=== PATIENT | female | born 1980 | race Caucasian/White ===

== ENCOUNTER 2020-05-22 17:04 | Observation (INO) | payer BC, SELFPAY ==
--- NOTE | ~2020-05-22 | CT_ITS ---
EXAMINATION: CT abdomen pelvis w con DATE: 05/22/2020 20:52 INDICATION: Abdominal pain TECHNIQUE: Computed tomography (CT) of the abdomen and pelvis was performed with 100 cc Omnipaque 350 intravenous contrast. Automated exposure control and iterative reconstruction technique were employe d. Exam dose: 201.34 mGy-cm total exam DLP. COMPARISON: None. FINDINGS: The lung bases are clear of infiltrate or consolidation. Normal heart size. No pericardial or pleural effusion. The liver, gallbladder, bile ducts, spleen, pancreas, pancreatic duct, and adrenal glands and kidneys appear normal. No urinary tract calculus or hydroureteronephrosis. The urinary bladder is unremarkab le. Normal caliber of the abdominal aorta. No intraperitoneal or retroperitoneal or pelvic mass lesion or adenopathy or ascites. Approximately 2.2 cm left ovarian cyst. Mild free fluid in the pelvis. Dilated appendix measuring up to 14 mm diameter, with thickening of the wall, appendicolith, fluid di stention and air-fluid levels. Findings are consistent with acute appendicitis. No abscess is identif ied. There is a prominent amount of fecal material throughout the colon. No bowel obstruction, bowel wall thickening, pneumatosis or intraperitoneal free air is evident. IMPRESSION: Acute appendicitis 2.2 cm left ovarian cyst, mild free fluid in the pelvis Reviewed, dictated and finalized at [facility]. Reviewed, dictated and finalized at [facility].
[2020-05-22 17:33] VITALS: BP 123/73; PULSE 74; RESP 16; TEMP 35.9; O2SAT 100
--- NOTE | 2020-05-22 17:41 | PC.NURSE ---
hysterectomy. preg test cancelled
[2020-05-22 17:52] LABS: Basophils Percent Auto 0.4 % (0.2-1.2); Eosinophils Absolute Auto 0.1 K/mm3 (0-0.3); Hemoglobin 12.6 g/dL (12.0-15.0); Immature Granulocyte Absolute 0.02 K/mm3 (0.00-0.031); Immature Granulocyte Percent A 0.3 % (0-0.5); Lymphocytes Absolute Auto 2.08 K/mm3 (0.9-3.2); Lymphocytes Percent Auto 28.4 % (18.3-44.2); Mean Corpuscular HGB Conc 33.2 g/dl (32-36); Mean Corpuscular Hemoglobin 29.4 pg (26-34); Mean Corpuscular Volume 88.6 fl (80-100); Mean Platelet Volume 10.7 fl (7.4-10.4); Monocytes Absolute Auto 0.5 K/mm3 (0.1-0.6); Monocytes Percent Auto 6.1 % (2.6-8.5); Neutrophils Absolute Auto 4.7 K/mm3 (1.3-6.7); Neutrophils Percent Auto 63.8 % (45.5-73.1); Platelet Count Result 177 k/mm3 (150-375); Red Blood Count 4.29 M/mm3 (4.2-5.4); Red Cell Distribution Width 12.3 % (11.5-14.5); White Blood Count 7.3 K/mm3 (4.5-10.0)
[2020-05-22 17:56] LABS: Add Urine Microscopic? YES; Appearance Urine Clear (Clear); Bilirubin Urine Negative (Negative); Blood Urine Negative (Negative); Color Urine Colorless (Yellow); Glucose Urine UA Negative (Negative); Ketones Urine Trace mg/dL (Negative); Leukocyte Esterase Ur Negative LEU/UL (Negative); Nitrate Urine Negative (Negative); Protein Urine Negative (Negative); RBC Urine 0-2 /hpf (0-2); Squamous Epithelial Cell Urine Rare /hpf (Few); Urobilinogen Urine Negative mg/dL (<2.0); WBC Urine 0-3 /hpf
[2020-05-22 18:01] LABS: Specific Grav Ur 1.004 (1.001-1.035)
[2020-05-22 18:04] LABS: Alanine Aminotransferase 10 U/L (4-35); Albumin Level 4.4 g/dL (3.5-5.1); Alkaline Phosphatase 58 U/L (38-126); Anion Gap 8 mmol/L (8-16); Aspartate Amino Transferase 27 U/L (14-36); Bilirubin,Total 0.6 mg/dL (0.2-1.3); Blood Urea Nitrogen 12 mg/dL (7-17); Calcium 9.4 mg/dL (8.4-10.2); Carbon Dioxide 28 mmol/L (22-30); Chloride 104 mmol/L (98-107); Estimated CRCL calculation 81 ml/min; Estimated Glomerular Filt Rate > 60; Glucose 88 mg/dL (65-105); Lipase 63 U/L (23-300); Potassium 3.9 mmol/L (3.4-5.0); Sodium 140 mmol/L (137-145)
--- NOTE | 2020-05-22 20:18 | ED.GENADULT ---
HPI - General Adult General Chief complaint: Abdominal Pain Stated complaint: abd pain since wednesday Time Seen by Provider: 05/22/20 19:45 History of Present Illness HPI narrative: Patient a 39-year-old female who presents the emergency department with chief complaint of abdominal pain. Patient reports that she started having pain in the right lower quadrant states it does not radiate. Patient states that she has had no vomiting no diarrhea reports has had prior history of a hysterectomy. Patient states the pain is achy and sharp states that her appetite has been decreased. Patient denies fever. The patient reports she last ate around noon and had some water around 4:30 PM Related Data Home Medications Medication Instructions Recorded Confirmed sertraline [Zoloft] 25 mg PO DAILY 01/19/19 01/19/19 Allergies Allergy/AdvReac Type Severity Reaction Status Date / Time No Known Drug Allergies Allergy Mild Verified 02/12/12 11:55 Review of Systems Review of Systems: Narrative: A 10 system review of systems was completed on the patient and is negative except for what is stated in the HPI. Nursing and ancillary documentation was reviewed. PMFSH Social History Social History Gender identity (if verbalized by the patient): Female Comments Patient reports no significant past medical history Surgical history the patient has had a hysterectomy Social history the patient denies smoking Exam Narrative: Exam Narrative: GENERAL: Well-appearing, well-nourished, and in no acute distress. HEAD: Normocephalic, atraumatic. EYES: PERRLA and EOMI. ENT: Nares clear, no rhinorrhea or epistaxis. Mucous membranes moist. NECK: Supple. CHEST: Clear to auscultation. No respiratory distress. HEART: Regular rate and rhythm. No murmur heard. Normal peripheral pulses. ABDOMEN: Soft, mild tenderness to palpation in the right lower quadrant, nondistended, normal active bowel sounds. EXTREMITIES: Normal range of motion. No edema. SKIN: Warm, dry, no rash. NEURO: No focal deficits. Alert and oriented x3. PSYCH: Normal mood and affect. Course Course Emergency Course: CT scan shows evidence of acute appendicitis Migraines were discussed with Dr. Gamez who is on-call for general surgery the patient will be given a dose of Zosyn in the emergency department and the patient will be admitted to the surgical service for most likely appendectomy tomorrow Vital Signs Vital signs: Vital Signs Temperature 35.9 C L 05/22/20 17:33 Pulse Rate 74 05/22/20 17:33 Respiratory Rate 16 05/22/20 17:33 Blood Pressure 123/73 05/22/20 17:33 Pulse Oximetry 100 05/22/20 17:33 Temperature 35.9 C L 05/22/20 17:33 Pulse Rate 74 05/22/20 17:33 Respiratory Rate 16 05/22/20 17:33 Blood Pressure 123/73 05/22/20 17:33 Pulse Oximetry 100 05/22/20 17:33 Medical Decision Making Vital Signs Vital Signs: Vital Signs Temperature 35.9 C L 05/22/20 17:33 Pulse Rate 74 05/22/20 17:33 Respiratory Rate 16 05/22/20 17:33 Blood Pressure 123/73 05/22/20 17:33 Pulse Oximetry 100 05/22/20 17:33 Temperature 35.9 C L 05/22/20 17:33 Pulse Rate 74 05/22/20 17:33 Respiratory Rate 16 05/22/20 17:33 Blood Pressure 123/73 05/22/20 17:33 Pulse Oximetry 100 05/22/20 17:33 Lab Data Result diagrams: 05/22/20 17:44 05/22/20 17:44 Labs: Lab Results 05/22/20 05/22/20 05/22/20 Range/Units 17:44 17:44 17:44 WBC 7.3 (4.5-10.0) K/mm3 RBC 4.29 (4.2-5.4) M/mm3 Hgb 12.6 (12.0-15.0) g/dL Hct 38.0 (37.0-47.0) % MCV 88.6 (80-100) fl MCH 29.4 (26-34) pg MCHC 33.2 (32-36) g/dl RDW 12.3 (11.5-14.5) % Plt Count 177 (150-375) k/mm3 MPV 10.7 H (7.4-10.4) fl Immature Gran % (Auto) 0.3 (0-0.5) % Neut % (Auto) 63.8 (45.5-73.1) % Lymph % (Auto) 28.4 (18.3-44.2) % Dickens % (Auto) 6.1 (2.6-8.5) % Eos % (Auto) 1.0 (0-4.
[2020-05-22] MEDS: ONDANSETRON INJ 4 MG/2 ML VIAL IV PUSH (20:28)
[2020-05-22] MEDS: SODIUM CHLORIDE 0.9% IV 1,000 ML 999 ML IV CONT (20:28)
--- NOTE | 2020-05-22 22:38 | ADMGEN ---
This patient, Lucinda Ariza, was admitted to Medical Room 261-01. Patient/family oriented to hospital policies and general routines including ID bracelet, bed and alarms, visiting hours, pain management, procedures, bathroom and other care routines, personal items, smoking policy, room service/diet, and visiting hours. Information on how to activate the Rapid Response Team has been discussed. Patient/Family are encouraged to report perceived risks to care and to ask questions if they do not understand what they are told or what they should do.
[2020-05-22 22:49] VITALS: BP 102/54; PULSE 57; RESP 16; TEMP 36.4; O2SAT 100; BMI 22.5
[2020-05-22] MEDS: SODIUM CHLORIDE 0.9% IV 1,000 ML 125 ML IV CONT (22:57)
[2020-05-23] VITALS (12 sets, daily range): BP systolic 88–112; BP diastolic 46–66; PULSE 61–95; RESP 14–18; TEMP 36.5–37.1; O2SAT 96–100
[2020-05-23] MEDS: ONDANSETRON INJ 4 MG/2 ML VIAL IV PUSH (05:08)
--- NOTE | 2020-05-23 06:25 | PM.SD2 ---
Same Day Admit/Disch: HPI History of Present Illness Chief complaint: acute appendicitis Narrative: Lucinda Ariza is a 39 year old female who came to the emergency room last night with right lower quadrant abdominal pain. She has not had any nausea or vomiting. She has not had any fever or chills. She has had a poor appetite. The pain is described as achy and sometimes sharp. She came to the emergency room where she was noted to have normal vital signs but tenderness in the right lower quadrant. CT scan of the abdomen and pelvis was done and showed a 14 mm dilated appendix with surrounding inflammatory changes consistent with acute appendicitis. There was also noted to be an appendicolith. Her white blood cell count was normal. She has been admitted and started on IV Zosyn antibiotics. Plan is to proceed with laparoscopic appendectomy today. PENDING SALE TO [facility] Past Medical History Medical History (Updated 05/23/20 @ 07:55 by Rene Joseph DO) Anemia Anxiety Family History Family History Mother Breast cancer Father Hypertension Social History Social History Smoking status: Never smoker Second hand tobacco smoke exposure: No Alcohol intake: never Substance use: never Gender identity (if verbalized by the patient): Female Spiritual care concerns: No Same Day Admit/Disch: Med Pre-admit Medications Home Medications Medication Instructions Recorded Confirmed Type alprazolam [Xanax] 0.5 mg PO BID PRN 05/22/20 05/22/20 History escitalopram oxalate [Lexapro] 10 mg PO DAILY 05/22/20 05/22/20 History hydrocodone-acetaminophen 1 - 2 tablet PO Q6H PRN #7 tablet 05/23/20 Rx Exam Const: General: cooperative, no acute distress, alert, awake, tired appearing and uncomfortable; No confusion Nutritional Appearance: thin Orientation/consciousness: No confusion Limitations: no limitations HENMT: Head: normocephalic, atraumatic, no contusions and no scalp lesions Ears: external ears normal General nose exam: Normal external nose present Face and sinus: face symmetric and dry mucous membranes Mouth: Yes Normal oral and palatal mucosa present and Yes tongue normal Throat: posterior oropharynx normal Eyes: Conjunctivae: conjunctivae normal Sclera: sclerae normal Pupils: Equal, round and reactive pupils present EOM: EOMs intact bilaterally Neck: Neck: normal visual inspection, no lymphadenopathy, trachea midline, supple, nontender and no JVD Thyroid: abnormal thyroid Resp: Effort & Inspection: normal respiratory effort Auscultation: clear to auscultation bilaterally Cardio: Rate: regular rate Rhythm: regular rhythm GI: Inspection: normal to inspection GI Palp: Yes Soft to palpation, Yes Tenderness to palpation present (GI) ( Tender over McBurney's point with guarding), Yes Guarding due to palpation present (GI), No Hepatomegaly present and No Splenomegaly present Auscultation: normal bowel sounds Skin: General skin exam: normal color, turgor normal and no erythema Lesions: no lesions Rashes: no rashes Trauma: no lacerations or abrasions Neuro: General: No confusion Cranial nerves: Yes Equal, round and reactive pupils present Motor exam (neuro): Motor abnormalities not present Extrem: General: no clubbing, cyanosis or edema and edema Psych: Affect: normal affect Thought process: Normal thought process present Insight: Good insight present (Psych) DS: Data Data Completed and Pending Labs on day of discharge: Labs from last 24 hours 05/22/20 05/22/20 05/22/20 17:44 17:44 17:44 WBC 7.3 RBC 4.29 Hgb 12.6 Hct 38.0 MCV 88.6 MCH 29.4 MCHC 33.2 RDW 12.3 Plt Count 177 MPV 10.7 H Immature Gran % (Auto) 0.3 Neut % (Auto) 63.8 Lymph % (Auto) 28.4 Logan % (Auto) 6.1 Eos % (Auto) 1.0 Baso % (Auto) 0.4 Lymph # (Auto) 2.08 Logan # (Aut
--- NOTE | 2020-05-23 06:34 | WPDHPUPDATE1 ---
History and Physical Update Update Date/Time: 05/23/20 06:34 History and Physical has been reviewed, including an updated exam of the patient. There are NO changes in the patient's condition. Risks, benefits, and alternatives have been discussed and questions answered. Patient agrees to proceed with procedure.
--- NOTE | 2020-05-23 07:27 | PC.NURSE ---
Pt to OR per stretcher. 05/23/20 0729
--- NOTE | 2020-05-23 07:55 | WPDANESEPPF ---
Anes - Initial Pre Proc Eval Procedure: Operation Date: 05/23/20 08:15 Proposed Procedures p Laparoscopic Appendectomy - Luca Gamez MD Date/Time: 05/23/20 07:55 Surgeon: Luca Gamez MD Pre Op Diagnosis: acute appendicitis Patient Data Age: 39 Gender: F Height: 1.63 m Weight: 59.5 kg Last Vital Signs Temp 37.1 C 05/23/20 05:04 Pulse 70 05/23/20 05:04 Resp 16 05/23/20 05:04 BP 108/65 05/23/20 05:04 Pulse Ox 99 05/23/20 05:04 Allergies Allergy/AdvReac Type Severity Reaction Status Date / Time No Known Drug Allergies Allergy Mild Verified 02/12/12 11:55 Home Medications Medication Instructions Recorded Confirmed Type alprazolam [Xanax] 0.5 mg PO BID PRN 05/22/20 05/22/20 History escitalopram oxalate [Lexapro] 10 mg PO DAILY 05/22/20 05/22/20 History Laboratory Tests 05/22/20 05/22/20 05/22/20 17:44 17:44 17:44 WBC 7.3 K/mm3 K/mm3 (4.5-10.0) RBC 4.29 M/mm3 M/mm3 (4.2-5.4) Hgb 12.6 g/dL g/dL (12.0-15.0) Hct 38.0 % % (37.0-47.0) MCV 88.6 fl fl (80-100) MCH 29.4 pg pg (26-34) MCHC 33.2 g/dl g/dl (32-36) RDW 12.3 % % (11.5-14.5) Plt Count 177 k/mm3 k/mm3 (150-375) MPV 10.7 fl H fl (7.4-10.4) Immature Gran % (Auto) 0.3 % % (0-0.5) Neut % (Auto) 63.8 % % (45.5-73.1) Lymph % (Auto) 28.4 % % (18.3-44.2) Cooke % (Auto) 6.1 % % (2.6-8.5) Eos % (Auto) 1.0 % % (0-4.4) Baso % (Auto) 0.4 % % (0.2-1.2) Lymph # (Auto) 2.08 K/mm3 K/mm3 (0.9-3.2) [place] # (Auto) 0.5 K/mm3 K/mm3 (0.1-0.6) Eos # (Auto) 0.1 K/mm3 K/mm3 (0-0.3) Baso # (Auto) 0.0 K/mm3 K/mm3 (0.0-0.1) Abs Immat Gran (auto) 0.02 K/mm3 K/mm3 (0.00-0.031) Absolute Neuts (auto) 4.7 K/mm3 K/mm3 (1.3-6.7) Absolute Nucleated RBC 0.0 K/mm3 K/mm3 (0.0-0.012) Nucleated RBC % 0.0 % % (0.0-0.2) Sodium 140 mmol/L mmol/L (137-145) Potassium 3.9 mmol/L mmol/L (3.4-5.0) Chloride 104 mmol/L mmol/L (98-107) Carbon Dioxide 28 mmol/L mmol/L (22-30) Anion Gap 8 mmol/L mmol/L (8-16) BUN 12 mg/dL mg/dL (7-17) Creatinine 0.70 mg/dL mg/dL (0.7-1.0) Estim Creat Clear Calc 81 ml/min ml/min Estimated GFR > 60 (59 - ) Glucose 88 mg/dL mg/dL (65-105) Calcium 9.4 mg/dL mg/dL (8.4-10.2) Total Bilirubin 0.6 mg/dL mg/dL (0.2-1.3) AST 27 U/L U/L (14-36) ALT 10 U/L U/L (4-35) Alkaline Phosphatase 58 U/L U/L (38-126) Total Protein 8.0 g/dL g/dL (6.3-8.2) Albumin 4.4 g/dL g/dL (3.5-5.1) Lipase 63 U/L U/L (23-300) Urine Color Colorless (Yellow) Urine Appearance Clear (Clear) Urine pH 7.0 (5.0-9.0) Ur Specific [place] 1.004 (1.001-1.035) Urine Protein Negative mg/dL mg/dL (Negative) Urine Glucose (UA) Negative mg/dL mg/dL (Negative) Urine Ketones Trace mg/dL mg/dL (Negative) Ur Blood (Man) Negative (Negative) Urine Nitrate Negative (Negative) Urine Bilirubin Negative (Negative) Urine Urobilinogen Negative mg/dL mg/dL (<2.0) Leukocyte Esterase Rfl Negative JOSE D/UL JOSE D/UL (Negative) Urine RBC 0-2 /hpf /hpf (0-2) Urine WBC 0-3 /hpf /hpf Ur Squamous Epith Cells Rare /hpf /hpf (Few) Patient hx anesthesia problems: post op nausea/vomiting Family hx anesthesia problems: none PMFSH Past Medical History Medical History (Updated 05/23/20 @ 07:55 by Rene Joseph DO) Anemia Anxiety Family History Family History Mother Breast cancer
[2020-05-23] MEDS: LACTATED RINGERS 1,000 ML 30 ML IV CONT ×2 (08:03→09:35)
[2020-05-23] MEDS: FAMOTIDINE 20 MG/2 ML VIAL IV PUSH (08:04)
[2020-05-23] MEDS: SCOPOLAMINE 1.5 MG PATCH TRANSDERM (08:06)
--- NOTE | 2020-05-23 08:53 | PM.PROC ---
Procedure Note - Detailed Date of procedure: 05/23/20 Pre-op diagnosis: acute appendicitis acute appendicitis Post-op diagnosis: same Procedure performed: Laparoscopic appendectomy Description of procedure: The patient was taken to surgery and induced into general anesthesia. The abdomen was prepped and draped. Trocars were placed in the usual fashion using 0.5% Marcaine with epinephrine and applied Medical optical trocars. A 5 mm camera was used. The patient was placed in Trendelenburg with the right side elevated. The appendix was found and was elevated anteriorly. Dissection was carried out in the mesoappendix. The mesoappendix was dissectedand the appendiceal vessels cauterized for hemostasis. Eventually the base of the appendix was skeletonized. The appendix was ligated at its base with a Vicryl endo-loop. It was amputated just above the ligature and the mucosa of the appendiceal stump was cauterized. The appendix was immediately placed in an Endo-Catch bag and retrieved through the 10 11 left lower quadrant trocar site. We replaced the 10 11 trocar and reviewed the right lower quadrant and areas of dissection. All looked good with no evidence of bleeding or other problems. We evacuated CO2 and removed the trocar sleeves. Skin wounds were closed with subcuticular 4 O Monocryl skin suture. The wounds were dressed with Exofin surgical adhesive. The patient was awakened and taken to recovery in good condition. Sponge and needle counts were correct x2. Anesthesia: GETA and local (0.5% Marcaine with epinephrine) Surgeon: Luca Gamez MD [employer] Supervisor: JAIDEN Celeste Estimated blood loss (mL): 5 Drains: No Packing: No Pathology: yes (Appendix) Complications: None Condition: stable Disposition: PACU Findings: Acute non perforated appendicitis
[2020-05-23] MEDS: BUPIVACAINE/EPINEPHRINE 0.5% 30 ML VIAL 5 ML INFILTRATE (09:29)
[2020-05-23] MEDS: fentaNYL CITRATE INJ (*CRX) 100 MCG/2 ML VIAL 25 MCG IV PUSH ×4 (10:08→10:25)
--- NOTE | 2020-05-23 10:55 | PC.NURSE ---
Pt return from OR per stretcher. 05/23/20 1055.
[2020-05-23] MEDS: LACTATED RINGERS 1,000 ML 100 ML IV CONT (10:58)
== END 2020-05-23 13:52 | disposition home or self-care (01) ==
LOC: ANHED 21:51 → ANH2MED 22:03
PROVIDERS: Emergency Medicine; Admitting Provider Surgery; Emergency Provider Emergency Medicine; PCP Internal Medicine; Visit Provider Surgery
PROC: 0DTJ4ZZ Resection of Appendix, Percutaneous Endoscopic Approach (ICD-10-PCS; CPT 44970; principal; 2020-05-23 08:15)
DX: K35.30 Acute appendicitis with localized peritonitis, without perforation or gangrene (principal)
CPT/HCPCS: 44970; 36415; 74177; 80053; 81001; 83690; 85025; 88304; 96361; 96365; 96375; 96376; 99285; A9270; G0378; J0330; J1100; J2250; J2405; J2543; J2704; J3010; J7030; J7120; Q9967

== ENCOUNTER 2022-01-02 17:14 | Emergency (ER) | payer BC, SELFPAY ==
--- NOTE | ~2022-01-02 | XR_ITS ---
EXAMINATION: XR finger 4th LT min 2V DATE: 01/02/2022 17:52 INDICATION: Left hand fourth digit pain and injury. TECHNIQUE: 4 views of left hand fourth digit were obtained. COMPARISON: None. FINDINGS: Bone alignment is normal. No fracture. Joint spaces are well maintained. IMPRESSION: 1. No fracture. Reviewed, dictated and finalized at location [facility]. IMPRESSION: 1. No fracture.
[2022-01-02 17:27] VITALS: BP 108/67; PULSE 60; RESP 18; TEMP 36.6; O2SAT 100
--- NOTE | 2022-01-02 17:59 | ED.UPPEXIN ---
HPI - Extremity Injury (Upper) General Chief Complaint: Extremity Injury, Upper Stated Complaint: lt 4th finger injury Time Seen by Provider: 01/02/22 17:45 Source: patient Mode of arrival: ambulatory Limitations: no limitations History of Present Illness HPI narrative: 41-year-old female presents with pain and swelling to left 4th finger. 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 States possibly jammed or hyperextended. Patient has decreased range of motion. Distal neurovascularly intact. Has not taken any opar-nax-[id number] pain medication prior to arrival. All systems reviewed and negative except as noted above. Related Data Allergies Allergy/AdvReac Type Severity Reaction Status Date / Time No Known Drug Allergies Allergy Mild Unknown Verified 01/02/22 17:37 Review of Systems Review of Systems: CONSTITUTIONAL: Denies fever, chills, or sweats. EYES: Denies visual changes, redness, or discharge. ENT: Denies rhinorrhea, congestion, sore throat, or otalgia. CARDIOVASCULAR: Denies chest pain, palpitations, or edema. RESPIRATORY: Denies cough or dyspnea. GASTROINTESTINAL: Denies abdominal pain, nausea, vomiting, or diarrhea. GENITOURINARY: Denies dysuria or hematuria. SKIN: Denies rash or itching. MUSCULOSKELETAL: Reports pain and swelling to left 4th finger. NEUROLOGIC: Denies headache, numbness, or weakness. PSYCHIATRIC: Denies anxiety or depression. All other systems reviewed are negative, except as documented in HPI. 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 Anticipatory guidance given. Patient agrees to follow-up as directed and is aware of reasons to seek care at the emergency department. Portions of this record may have been created with voice recognition software Exam Narrative: GENERAL: This is a well-nourished, well-developed patient, in no apparent distress. HEAD: normocephalic, atraumatic. EYES: PERRL. Sclera clear/white. Vision is grossly intact. EARS: External ears normal NOSE: External nose normal NECK: Neck supple, non-tender without lymphadenopathy, masses or thyromegaly. CARDIOVASCULAR: Regular rate and rhythm without murmurs, gallops, or rubs. RESPIRATORY: Clear to auscultation. Breath sounds equal bilaterally. No wheezes, rales, or rhonchi. SKIN: warm, Dry, intact with no suspicious lesions or rash, good texture and turgor. NEURO: awake, alert, and oriented to person, place and time. There were no obvious focal neurologic abnormalities. EXTREMITIES: tenderness to left 4th PIP and phalanx. mild swelling noted. decreased flexion due to pain. BACK: Nontender without deformity. Course Course Level of Care: Express Care Visit Vital Signs Vital signs: Vital Signs Temperature 36.6 C 01/02/22 17:27 Pulse Rate 60 01/02/22 17:27 Respiratory Rate 18 01/02/22 17:27 Blood Pressure 108/67 01/02/22 17:27 Pulse Oximetry 100 01/02/22 17:27 Oxygen Delivery Room Air 01/02/22 17:27 Temperature 36.6 C 01/02/22 17:27 Pulse R
== END 2022-01-02 18:11 | disposition home or self-care (01) ==
PROVIDERS: Emergency Provider Nurse Practitioner Family; PCP Internal Medicine
DX: S63.615A Unspecified sprain of left ring finger, initial encounter (principal); W21.05XA Struck by basketball, initial encounter
CPT/HCPCS: 29130; 73140; 99213; G0463

== ENCOUNTER 2022-04-26 18:52 | Emergency (ER) | payer BC, SELFPAY ==
--- NOTE | 2022-04-26 18:56 | ED.URI ---
HPI - URI/Sore Throat General Chief Complaint: Upper Respiratory Infection Stated Complaint: sorethroat,cough Time Seen by Provider: 04/26/22 18:54 Source: patient Mode of arrival: ambulatory Limitations: no limitations History of Present Illness HPI Narrative: Ms. Ariza is a 41-year-old female patient presenting to the clinic today with complaints sore throat, nasal congestion, and a cough x 1 week. She reports sore throat began on Wednesday however improving now it is worse again. She is doing a lot of coughing bringing up some clear phlegm at times. MD elicited complaint: cough, sore throat and nasal congestion Related Data Allergies Allergy/AdvReac Type Severity Reaction Status Date / Time No Known Drug Allergies Allergy Mild Unknown Verified 04/26/22 19:12 Review of Systems Review of Systems: Pertinent positives per HPI. Patient denies any fever, chills, rash, headache, visual changes, dizziness, shortness of breath, chest pain, palpitations, nausea, vomiting, diarrhea, constipation, abdominal pain, or any urinary issues. 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 There is no relevant family history pertinent to the patient complaint. Exam Narrative: General: Well-developed, well nourished, in no apparent distress Head: Normocephalic, atraumatic Eyes: Pupils equally round and reactive to light bilaterally, EOM intact, sclera and conjunctive clear, no discharge, lids normal Ears: TMs intact and clear, ear canals clear, no drainage, grossly hearing normal. Nose: Nares patent, clear nasal discharge, no inflammation, no sinus tenderness. Mouth: Oral pharynx without lesions or masses, good dentition, MMM. Neck: Supple, trachea midline, no enlargement of anterior or posterior cervical nodes, no thyroid masses or goiter palpable. Cardio: Regular rate and rhythm, s1 and s2 normal, no murmur appreciated. Resp: Clear to auscultation bilaterally, no rhonchi, rales, wheezing or rubs Course Course Emergency Course: Portions of this record may have been created with voice recognition software. Level of Care: Express Care Visit Vital Signs Vital signs: Vital signs reviewed MDM - URI/Sore Throat MDM Narrative Medical decision making narrative: At the time of visit patient is resting comfortably on exam table. Strep screen was obtained and was negative in the clinic today. We will send strep for culture. prescription for prednisone was sent to the pharmacy and supportive measures were discussed with the patient she voiced understanding discharge instructions agrees to treatment plan. Differential Diagnosis Differential diagnosis: Likely upper respiratory infection, otitis media, sinusitis, viral infection, bronchitis, influenza, pharyngitis and other (COVID) Discharge Plan Discharge Clinical Impression: Acute upper respiratory infection, PND (post-nasal drip) Pharyngitis Qualifiers: Phary
[2022-04-26 19:03] VITALS: BP 113/71; PULSE 63; RESP 18; TEMP 36.6; O2SAT 100
== END 2022-04-26 19:22 | disposition home or self-care (01) ==
PROVIDERS: Emergency Provider Nurse Practitioner Family; PCP Physician Assistant Medical
DX: J06.9 Acute upper respiratory infection, unspecified (principal); R09.82 Postnasal drip; J02.9 Acute pharyngitis, unspecified; F41.9 Anxiety disorder, unspecified
CPT/HCPCS: 87081; 87880; 99213; G0463

== ENCOUNTER 2022-07-24 18:51 | Emergency (ER) | payer BC, SELFPAY ==
[2022-07-24 19:13] VITALS: BP 114/72; PULSE 76; RESP 16; TEMP 36.8; O2SAT 99
--- NOTE | 2022-07-24 19:52 | ED.GENADULT ---
HPI - General Adult General Chief complaint: Upper Respiratory Infection Stated complaint: Sore Throat Time Seen by Provider: 07/24/22 19:40 Source: patient and RN notes reviewed Mode of arrival: ambulatory Limitations: no limitations History of Present Illness HPI narrative: Patient presents today complaining of right-sided sore throat x4 days with right ear pain. She currently rates her pain 4/10 and has been taking Tylenol and gargling salt water without much relief. Pain increases with swallowing. Believes she may have a tonsil stone. Related Data Allergies Allergy/AdvReac Type Severity Reaction Status Date / Time No Known Drug Allergies Allergy Mild Unknown Verified 07/24/22 19:09 Review of Systems Review of Systems: CONSTITUTIONAL: Denies body aches, fever, chills, or sweats. EYES: Denies visual changes, redness, or discharge. ENT: Denies rhinorrhea, congestion. + right ear pain, sore throat CARDIOVASCULAR: Denies chest pain, palpitations, or edema. RESPIRATORY: Denies cough or dyspnea. GASTROINTESTINAL: Denies abdominal pain, nausea, vomiting, or diarrhea. GENITOURINARY: Denies dysuria or hematuria. SKIN: Denies rash, itching, or wounds. MUSCULOSKELETAL: Denies back pain, joint pain, or myalgia. NEUROLOGIC: Denies headache, numbness, tingling, or weakness. PSYCH: Denies depression or anxiety. 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 Please see nursing chart for further information. There is no relevant family history pertinent to the presenting complaint Exam Narrative: GENERAL: Well-appearing, well-nourished, and in no acute distress. HEAD: Normocephalic, atraumatic. EYES: EOMI. No redness or drainage. Conjunctivae normal. ENT: Mucous membranes pink and moist. Nares clear. No rhinorrhea. TMs normal bilaterally. Throat normal with right-sided tonsil stone. Uvula midline. NECK: Normal AROM. Supple. No lymphadenopathy. CHEST: No respiratory distress. Clear to auscultation. HEART: Regular rate and rhythm. No murmur appreciated. Normal peripheral pulses. EXTREMITIES: Normal range of motion. No edema. SKIN: Warm, dry, no rash. Capillary refill normal. Normal skin turgor. NEURO: No focal deficits. Alert and oriented x3. Gait steady. PSYCH: Normal affect. No signs of depression or anxiety. Course Course Level of Care: Express Care Visit Vital Signs Vital signs: Vital Signs Temperature 98.3 F 07/24/22 19:13 Pulse Rate 76 07/24/22 19:13 Respiratory Rate 16 07/24/22 19:13 Blood Pressure 114/72 07/24/22 19:13 Pulse Oximetry 99 07/24/22 19:13 Oxygen Delivery Room Air 07/24/22 19:13 Temperature 98.3 F 07/24/22 19:13 Pulse Rate 76 07/24/22 19:13 Respiratory Rate 16 07/24/22 19:13 Blood Pressure 114/72 07/24/22 19:13 Pulse Oximetry 99 07/24/22 19:13 Oxygen Delivery Room Air 07/24/22 19:13 Reviewed Medical Deci
== END 2022-07-24 20:00 | disposition home or self-care (01) ==
PROVIDERS: Emergency Provider Nurse Practitioner; PCP Physician Assistant Medical
DX: J35.8 Other chronic diseases of tonsils and adenoids (principal); F41.9 Anxiety disorder, unspecified
CPT/HCPCS: 87081; 87880; 99213; G0463

== ENCOUNTER 2022-11-25 18:58 | Emergency (ER) | payer BC, SELFPAY ==
[2022-11-25 19:07] VITALS: BP 112/70; PULSE 59; RESP 16; TEMP 36.4; O2SAT 99
--- NOTE | 2022-11-25 19:12 | ED.URI ---
HPI - URI/Sore Throat General Chief Complaint: Upper Respiratory Infection Stated Complaint: sorethroat Time Seen by Provider: 11/25/22 19:12 Source: patient Mode of arrival: ambulatory Limitations: no limitations History of Present Illness HPI Narrative: 42-year-old female presents with complaint of sore throat, cough, fatigue for 5 days. Afebrile. Patient concerned she has strep throat. Denies congestion, runny nose. Denies nausea vomiting diarrhea. History of tonsil stones. All systems reviewed and negative except as noted above. Related Data Allergies Allergy/AdvReac Type Severity Reaction Status Date / Time No Known Drug Allergies Allergy Mild Unknown Verified 11/25/22 19:14 Review of Systems Review of Systems: CONSTITUTIONAL: Denies fever, chills, or sweats. reports fatigue. EYES: Denies visual changes, redness, or discharge. ENT: Denies rhinorrhea, congestion . Reports sore throat. Denies otalgia. CARDIOVASCULAR: Denies chest pain, palpitations, or edema. RESPIRATORY: Reports cough. Denies dyspnea. GASTROINTESTINAL: Denies abdominal pain, nausea, vomiting, or diarrhea. GENITOURINARY: Denies dysuria or hematuria. SKIN: Denies rash or itching. MUSCULOSKELETAL: Denies back pain, joint pain, or myalgia. NEUROLOGIC: Denies headache, numbness, or weakness. PSYCHIATRIC: Denies anxiety or depression. All other systems reviewed are negative, except as documented in HPI. 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 There is no relevant family history pertinent to the presenting complaint. Exam Narrative: GENERAL: This is a well-nourished, well-developed patient, in no apparent distress. HEAD: normocephalic, atraumatic. EYES: PERRL. Sclera clear/white. Vision is grossly intact. EARS: External ears normal, auditory canals clear and without drainage, TMs normal without perforation. Hearing grossly intact. NOSE: External nose normal with no obvious nasal discharge, nares without redness, no rhinorrhea. THROAT: Mucous membranes moist, erythema to posterior pharynx without swelling or exudates. No tonsil stones noted. NECK: Neck supple, non-tender without lymphadenopathy, masses or thyromegaly. CARDIOVASCULAR: Regular rate and rhythm without murmurs, gallops, or rubs. RESPIRATORY: Clear to auscultation. Breath sounds equal bilaterally. No wheezes, rales, or rhonchi. SKIN: warm, Dry, intact with no suspicious lesions or rash, good texture and turgor. NEURO: awake, alert, and oriented to person, place and time. There were no obvious focal neurologic abnormalities. EXTREMITIES: No joint tenderness, effusion, or edema noted. Course Course Level of Care: Express Care Visit Vital Signs Vital signs: Vital Signs Temperature 36.4 C L 11/25/22 19:07 Pulse Rate 59 L 11/25/22 19:07 Respiratory Rate 16 11/25/22 19:07 Blood Pressure 112/70 11/25/22 19:07 Pulse Oximetry 99 11/25/22 19:07 Oxygen Delivery Room Air 11/25/22 19:07
== END 2022-11-25 19:49 | disposition home or self-care (01) ==
PROVIDERS: Emergency Provider Nurse Practitioner Family; PCP Physician Assistant Medical
DX: J02.9 Acute pharyngitis, unspecified (principal); R09.82 Postnasal drip; F41.9 Anxiety disorder, unspecified
CPT/HCPCS: 87081; 87880; 99213; G0463

== ENCOUNTER 2023-05-25 16:43 | Emergency (ER) | payer OTHER, SELFPAY ==
[2023-05-25 16:53] VITALS: BP 130/79; PULSE 97; RESP 16; TEMP 36.3; O2SAT 99
--- NOTE | 2023-05-25 16:53 | ED.FEMALEGU ---
HPI - Female Genitourinary General Chief complaint: Urogenital-Female Stated complaint: Urinary Problems and Rash Time Seen by Provider: 05/25/23 17:01 Source: patient and RN notes reviewed Mode of arrival: ambulatory Limitations: no limitations History of Present Illness HPI Narrative: 42-year-old female presents with multiple concerns. She reports dysuria for about a week, worsening 2 days ago. She reports urgency. She denies fever, chills, nausea, vomiting. Denies frequency, back pain, abdominal pain. Denies foul-smelling odor, dark colored odor. Denies abnormal vaginal discharge. Denies vaginal irritation In a separate complaint she reports a rash to her bilateral forearms. Reports she dull with a rash similar to this that was a reaction to topical lotion. Reports she took prednisone but had difficult time taking the prednisone because it made her not sleep. She reports she used a different lotion that was hypoallergenic and she has a rash again. She denies swollen lips, swollen tongue, trouble breathing MD elicited complaint: UTI Related Data Allergies Allergy/AdvReac Type Severity Reaction Status Date / Time No Known Drug Allergies Allergy Mild Unknown Verified 11/25/22 19:14 Review of Systems Review of Systems: CONSTITUTIONAL: Denies malaise, chills, sweats, or fever. CARDIOVASCULAR: Denies chest pain, palpitations, or edema. RESPIRATORY: Denies cough or dyspnea. GASTROINTESTINAL: Denies abdominal pain, nausea, vomiting, diarrhea GENITOURINARY: Reports dysuria, urgency. Denies frequency, suprapubic pressure. Denies flank pain or hematuria. SKIN: Reports bilateral forearms itchy rash MUSCULOSKELETAL: Denies back pain or myalgia. All systems reviewed & are unremarkable except as noted in HPI and below PMFSH Past Medical History Medical History Anemia Anxiety Surgical History Surgical History H/O shoulder surgery H/O: hysterectomy History of appendectomy History of hip replacement, total Hx laparoscopic cholecystectomy Family History Family History Mother Breast cancer Father Hypertension Depression Grandparent Heart disease Social History Social History (Reviewed 11/12/22 @ 12:54 by FLORENCIO Kearney Smoking status: Never smoker Second hand tobacco smoke exposure: No Alcohol intake: never Substance use: never Living arrangements: with family 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 There is no relevant family history pertinent to the presenting complaint Exam Narrative: GENERAL: Well-appearing, well-nourished, and in no acute distress. HEAD: Normocephalic. EYES: PERRLA, conjunctivae clear. NECK: Supple. No lymphadenopathy CHEST: Clear to auscultation. No respiratory distress. HEART: Regular rate and rhythm. ABDOMEN: Soft, nontender upon palpation, nondistended, normal active bowel sounds, no palpable or pulsatile masses, no guarding. No CVA tenderness SKIN: Warm, dry. Slightly raised erythema and patches noted bilateral forearms NEURO: Alert and oriented x3. PSYCH: Normal mood and affect Course Course Emergency Course: Patient is aware of diagnosis, understands and agrees to treatment plan. Anticipatory guidance given. Patient agrees to follow-up as directed and is aware of reasons to seek care at the emergency department. Portions of this record may have been created with voice recognition software Level of Care: Express Care Visit Vital Signs Vital signs: Reviewed. MDM - Female Genitourinary MDM Narrative Medical decision making narrative: Exam find
== END 2023-05-25 17:23 | disposition home or self-care (01) ==
PROVIDERS: Emergency Provider Nurse Practitioner; PCP Physician Assistant Medical
DX: R30.0 Dysuria (principal); L30.9 Dermatitis, unspecified
CPT/HCPCS: 81003; 87086; 99213; G0463

== ENCOUNTER 2024-02-04 08:47 | Outpatient (CLI) | payer OTHER, SELFPAY ==
--- NOTE | ~2024-02-04 | MM_ITS ---
EXAMINATION: MM scrn montserrat implant BI w mari HISTORY: Screening mammogram TECHNIQUE: Craniocaudal and mediolateral oblique 3-D tomosynthesis images with implant displacement a nd synthetic 2-D images were generated. Craniocaudal and mediolateral oblique views of the breasts wi thout implant displacement were obtained using full field digital mammography. CAD analysis was submi tted and interpreted. COMPARISON: No prior mammogram is available for comparison at this institution. BREAST PARENCHYMAL COMPOSITION: Not dense: There are scattered areas of fibroglandular density. FINDINGS: There is no evidence of suspicious mass, calcification, or architectural distortion to sugg est malignancy in either breast. There has been no suspicious interval change. IMPRESSION: 1. No mammographic evidence of malignancy. 2. Recommend routine screening mammography in one year. BI-RADS Category 1: Negative Reviewed, dictated and finalized at location [facility]. [facility]
== END 2024-02-04 08:48 | disposition home or self-care (01) ==
LOC: MICIMG 08:47
PROVIDERS: PCP Physician Assistant Medical; Visit Provider Obstetrics & Gynecology
DX: Z12.31 Encounter for screening mammogram for malignant neoplasm of breast (principal)
CPT/HCPCS: 77063; 77067

== ENCOUNTER 2024-07-08 10:42 | Emergency (ER) | payer OTHER, SELFPAY ==
--- NOTE | 2024-07-08 10:44 | ED.URI ---
HPI - URI/Sore Throat General Chief Complaint: Upper Respiratory Infection Stated Complaint: Sore throat Time Seen by Provider: 07/08/24 10:44 Source: patient Mode of arrival: ambulatory Limitations: no limitations History of Present Illness HPI Narrative: Patient is a 43-year-old female that presents with sore throat, fever, body aches for 2 days. Denies any congestion, cough, ear pain, nausea, vomiting, diarrhea. Patient has taken ibuprofen. Related Data Allergies Allergy/AdvReac Type Severity Reaction Status Date / Time No Known Drug Allergies Allergy Mild Unknown Verified 07/08/24 10:48 Review of Systems Review of Systems: All systems reviewed & are unremarkable except as noted in HPI and below Constitutional: Constitutional: Reports body ache(s), Reports fever(s), Denies headache(s), Denies malaise and Denies weakness Eyes: Eyes: Denies loss of vision ENT: Denies otalgia, Denies headache(s), Denies nasal congestion, Denies sinus pain and Reports sore throat Cardiovascular: Cardiovascular: Denies chest pain, Denies irregular heart rhythm and Denies dyspnea Respiratory: Respiratory: Denies cough and Denies dyspnea Gastrointestinal: Gastrointestinal: Denies abdominal pain, Denies melena, Denies hematochezia, Denies diarrhea, Denies nausea and Denies vomiting Musculoskeletal: Musculoskeletal: Denies back pain, Reports myalgias and Denies arthralgias Integumentary/Breasts: Skin/Breast: Denies pruritus and Denies rash Neurologic: Denies headache(s), Denies loss of vision and Denies weakness Psychiatric: Psychiatric: Reports no additional psychiatric complaints PMFSH Past Medical History Medical History Constipation Vitamin B12 deficiency Anxiety Anemia Surgical History Surgical History H/O shoulder surgery History of hip replacement, total History of appendectomy H/O: hysterectomy Hx laparoscopic cholecystectomy Family History Family History Mother Breast cancer Father Hypertension Depression Grandparent Heart disease Social History Social History Social History: 06/01/24 very confident with medical forms Smoking status: Never smoker Second hand tobacco smoke exposure: No Alcohol intake: never Substance use: never Do You Feel Safe in your Home?: Yes Lack of Transportation: No Lack of Food: Never True Current Housing: I Have Housing Concerned About Future Housing: No Difficulty Paying Gas/Electric Bills: No Difficulty Paying for Meds: No Currently Unemployed: No Education: Bachelor's Degree Difficulty w/ Childcare or Family Care: No Living arrangements: with family 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 There is no relevant family history pertinent to the presenting complaint. Exam Const: General: cooperative, healthy appearing, comfortable, no acute distress and well nourished Nutritional Appearance: well nourished Orientation/consciousness: patient oriented x3 Limitations: no limitations HENMT: Head: normal to inspection, normocephalic and atraumatic Ears: hearing grossly normal bilaterally, external ears normal, TM's normal bilaterally and EAC's normal Face/Nose/Sinus: Normal external nose present, Normal nares present, Normal nasal mucous membranes and turbinates present, Normal septum present, normal facial exam, sinuses nontender and face symmetric Face and sinus: normal facial exam, sinuses nontender and face symmetric Mouth: Yes Normal oral and palatal mucosa present, Yes lip normal and Yes moist mucous membranes Teeth and gingiva: dentition normal Throat: uvula midline, abnormal tonsil bilateral erythema, exudates and hypertrophy 2+, posterior oropharynx abnormal erythema and exudates and postnasal drainage Eyes: General: appearance normal, both eyes and all related structures Alignment and Position: alignment normal and position normal Periorbital: periorbital findings normal Eyelids: eyelids normal Pupils: Equal, round and reactive pupils present Neck: Neck: normal visual inspection, full ROM, no lymphadenopathy and supple Chest: Chest palpation & inspection: normal inspection of the chest and normal palpation of entire chest wall Resp: Effort & Inspection: normal respiratory effort and able to speak in complete sentences Auscultation: clear to auscultation bilaterally, no crackles, no rales, no rhonchi and no wheezes Cardio: Rate: regular rate Rhythm: regular rhythm Heart sounds: S1 normal heart sound present and S2 normal heart sound present GI: Inspection: normal to inspection Skin: General skin exam: normal color and no rashes or lesions noted Neuro: General: patient oriented x3 and moves all extremities Cranial nerves: Yes Equal, round and reactive pupils present Speech: normal speech Gait exam (Neuro): Normal gait present Extrem: General: normal to inspection, full ROM and no edema Psych: Appearance: grossly normal and well kempt Mental Status: mental status grossly normal Speech and movement: Normal speech and movement present Affect: normal affect Attitude: cooperative Thought process: Normal thought process present Course Course Emergency Course: Patient is aware of diagnosis, understands and agrees to treatment plan. Anticipatory guidance given. Patient agrees to follow-up as directed and is aware of reasons to seek care at the emergency department. Portions of this record may have been created with voice recognition software Level of Care: Express Care Visit Vital Signs Vital signs: Vital Signs Temperature 37.7 C H 07/08/24 10:51 Pulse Rate 101 H 07/08/24 10:51 Respiratory Rate 18 07/08/24 10:51 Blood Pressure 111/68 07/08/24 10:51 Pulse Oximetry 100 07/08/24 10:51 Oxygen Delivery Room Air 07/08/24 10:51 Temperature 37.7 C H 07/08/24 10:51 Pulse Rate 101 H 07/08/24 10:51 Respiratory Rate 18 07/08/24 10:51 Blood Pressure 111/68 07/08/24 10:51 Pulse Oximetry 100 07/08/24 10:51 Oxygen Delivery Room Air 07/08/24 10:51 Reviewed MDM - URI/Sore Throat MDM Narrative Medical decision making narrative: Patient positive for strep, will treat with antibiotics. Pt well hydrated appearing, in no respiratory distress, hemodynamically stable. Recommend supportive care. The patient is stable at time of discharge the clinical impression was discussed and the patient was given the opportunity to ask questions, which were addressed as completely as possible given the information available at present. Anticipatory guidance and return to care precautions were discussed and the importance of primary care follow-up was stressed and encouraged. The patient voiced understanding of the plan, indications to return, and the need for follow-up. Patient is appropriate for outpatient treatment and follow-up. Differential diagnosis considered: Rodriguez virus, strep pharyngitis, allergic rhinitis, upper respiratory tract infection, sinusitis, rhinosinusitis, nasopharyngitis. viral pharyngitis, otitis media, otitis externa, otitis effusion, foreign body, cerumen impaction, viral syndrome, and influenza.? Medical Records Attestation: I reviewed the patient's medical records. Lab Data Attestation: I reviewed the patient's lab results. Labs: Lab Results 07/08/24 Range/Units 10:58 POC Grp A Strep Screen Positive (Negative) Discharge Plan Discharge Clinical Impression: Strep throat Patient Disposition: Home Condition: Stable Instructions: Strep Throat (ED) Additional Instructions: Your rapid strep swab was positive today at [facility]. After 24 hours on antibiotics throw tooth brush away and start using a new one. Wash your sheets and cup/water bottle that is used daily. Do not share drinks. Take Motrin alternating with Tylenol for pain and fever alternating every 3 hours. 8 AM: Tylenol 11 AM: Ibuprofen 2 PM: Tylenol 5 PM: Ibuprofen 8 PM: Tylenol 11 PM: Ibuprofen 2 AM: Tylenol 5 AM: Ibuprofen Increase fluids, avoid caffeine. Other symptomatic treatments include: -Antihistamine medication such as Benadryl at night and Zyrtec/Claritin/Xiao during the day can help improve symptoms. -Use Flonase twice a day for 5 days then daily to help reduce the inflammation and dry up your sinuses. -You can also use Sudafed or Mucinex. Be sure to drink plenty of water with these medications at least 8 ounces with every dose and it is important to drink 8 to 10 glasses of water per day. Water is a natural decongestant -Eat and drink things that are easy to swallow, like tea or soup, or popsicles. -Oral rinses such as: Salt water gargles and/or may use topical anesthetic (eg. Chloraseptic spray) or lozenges to relieve dryness or throat pain). -Frequent hand washing or hand tow bar driver is one of the best ways to prevent spread of infection. -Using a vaporizer or humidifier at night will also help thin secretions and help with coughing up phlegm. -Follow up with primary care provider in 3-5 days if condition is not improving - For new or worsening symptoms go directly to the nearest ER Patient Language: Swedish Prescriptions: New amoxicillin 500 mg capsule 500 mg PO BID 10 Days Qty: 20 0RF No Action alprazolam [Xanax] 0.5 mg tablet 0.5 mg PO BID PRN (Reason: Anxiety) Qty: 30 0RF rosuvastatin [Crestor] 10 mg tablet 10 mg PO .HS Qty: 90 0RF duloxetine [Cymbalta] 20 mg capsule,delayed release(DR/EC) 20 mg PO DAILY Qty: 30 0RF Follow-up/Referrals: Naz Cm PA-C [Primary Care Provider] - 3 Days Time of Disposition: 11:02
[2024-07-08 10:51] VITALS: BP 111/68; PULSE 101; RESP 18; TEMP 37.7; O2SAT 100
[2024-07-08 11:01] LABS: EDSTREPNEGPOS1 Positive (Negative)
--- OUTSIDE RECORDS SUMMARY | 2024-07-08 16:21 | XMS_ITS | Clinical Summary ---
Author Organization [facility] Address [facility] [place] [address] Care Team Providers Care Deputy Attorney General Name Role Phone Naz Cm Primary Care Provider Encounters Date Type Department Care Team Description 07/04/2024 2:15 PM CDT - 07/04/2024 11:59 PM CDT Hospital Encounter [facility] [place] [address] [place] [address] Andres Irene MD Discharge Disposition: Home or Self Care (Routine Discharge) 07/04/2024 Travel 06/28/2024 11:00 AM CDT Telephone [facility], [address] [address] Naz Cm PA Holter Monitor 06/21/2024 Orders Only [facility], [address] [address] Naz Cm PA 06/15/2024 Telephone [facility], [address] [address] Genevieve Corea RMA Schedule Test (30d monitor) from Last 3 Months Social History Tobacco Use Types Packs/Day Years Used Date Smoking Tobacco: Never Assessed Comments Unknown Sex and Gender Information Value Date Recorded Sex Assigned at Not on file Legal Sex Female 4:15 PM CDT Gender Identity Not on file Sexual Orientation Not on file Last Filed Vital Signs Vital Sign Reading Time Taken Comments Blood Pressure 102/64 10/18/2006 9:05 AM CDT Pulse 80 10/18/2006 9:05 AM CDT Temperature - - Respiratory Rate - - Oxygen Saturation - - Inhaled Oxygen Concentration - - Weight 51.3 kg (113 lb) 10/18/2006 9:05 AM CDT Height 162.6 cm (5' 4 ) 10/18/2006 9:05 AM CDT Body Mass Index 19.4 10/18/2006 9:05 AM CDT Plan of Treatment Health Maintenance Due Date Last Done Comments Cervical Cancer Screening Pa p Smear (Age 30 to 64) Every 3 Years 1981 Annual Physical 1984 Hepatitis C 09/21/1999 Hepatitis B Vaccines (1 of 3 - 19+ 3-dose series) 2000 Cervical Cancer Screening Pa p with HPV Testing (Age 30 to 64) Every 5 Years 09/21/2011 Cervical Cancer Screening with HPV 09/21/2011 Mammogram Screening 2021 COVID-19 Vaccine (1 - 2023-2 5 season) 2023 DTaP, Tdap and Td Vaccines ( 2 - Td or Tdap) 06/01/2034 06/01/2024 HPV Vaccines Aged Out No longer eligi ble based on patient's age to complete this topic Meningococcal B Vaccine Aged Out No l onger eligible based on patient's age to complete this topic Meningococcal Vaccine Aged Out No candido royal eligible based on patient's age to complete this topic Pneumococcal Vaccine: Pediat rics (0 to 5 Years) and At-Risk Patients (6 to 49 Years) Aged Out No longer eligi ble based on patient's age to complete this topic RSV Immunizations Under 20 Months Aged Out No longer eligible based on patient's age to complete this topic Procedures Procedure Name Priority Date/Time Associated Diagnosis Comments CT HEART SCREEN CALCIUM SCORE PROMO Routine 07/04/2024 2:33 PM CDT Screening for heart disease from Last 3 Months Results * CT HEART SCREEN CALCIUM SCORE PROMO (07/04/2024 2:33 PM CDT) Anatomical Region Laterality Modality Chest Computed Tomogra phy 07/04/2024 2:53 PM CDT Impressions 07/04/2024 2:53 PM CDT =====IMPRESSION:===== Total Score: 0 No plaque, very low risk, very unlikely for probability of significant CAD Ordered By: ANDRES IRENE Interpreted By: Parth Hernandez MD, 07/04/2024 2:53 PM Narrative 07/04/2024 2:53 PM CDT [facility] [address] [place], [place] [address] EXAMINATION: Multislice Helical CT Coronary Calcium Scoring REASON FOR EXAM: Screening for heart disease COMPARISON: None TECHNIQUE: Multislice helical CT images of the proximal coronary arteries with a computer generated calcification score. A dose lowering technique was used for this procedure, which may include, but is not limited to, dose reduction technique, automated exposure control, iterative reconstruction, ALARA (As Low As Reasonably Achievable), or Image Gently techniques. Results: Left main: 0 LAD: 0 Circumflex: 0 Right coronary: 0 Total Score: 0 Comments: There is no mediastinal adenopathy, and there are no pulmonary nodules in the visualized portions of the chest. Calcium score guidelines: Total Score* Calcium Plaque [facility] *Risk *Probability of significant CAD 0 No Plaque Very Low Very unlikely 1-10 Minimal Plaque Low Unlikely 11-100 Mild Plaque Moderate Low likelihood of significant stenosis <50% 101-400 Moderate Plaque Moderately High Moderate likelihood of significant stenosis (>50%) Over 400 Extensive Plaque High High likelihood of significant stenosis (>50%) The amount of coronary artery calcification correlates with the severity of coronary atherosclerosis and the probability of future significant event. Calcification is not site specific for stenosis and does not identify non-calcified atherosclerotic plaque, but rather indicates the extent of atherosclerosis in the coronary arteries overall. The score may be used as an indicator for risk factor modification or additional cardiac testing. Significant change in calcium score over time may be indicative of subsequent disease development or useful as a benchmark to assess preventative programs. Procedure Note Parth Hernandez MD - 07/04/2024 [facility] [address] [place], [place] [address] EXAMINATION: Multislice Helical CT Coronary Calcium Scoring REASON FOR EXAM: Screening for heart disease COMPARISON: None TECHNIQUE: Multislice helical CT images of the proximal coronary arterieswith a computer generated calcification score. A dose lowering techniquewas used for this procedure, which may include, but is not limited to,dose reduction technique, automated exposure control, iterativereconstruction, ALARA (As Low As Reasonably Achievable), or Image Gentlytechniques. Results: Left main: 0 LAD: 0 Circumflex: 0 Right coronary: 0 Total Score: 0 Comments: There is no mediastinal adenopathy, and there are no pulmonarynodules in the visualized portions of the chest. Calcium score guidelines: Total Score* Calcium Plaque [facility] *Risk *Probability ofsignificant CAD 0 No Plaque Very LowVery unlikely 1-10 Minimal Plaque LowUnlikely 11-100 Mild Plaque ModerateLow likelihood of significant stenosis <50% 101-400 Moderate Plaque Moderately HighModerate likelihood of significant stenosis (>50%) Over 400 Extensive Plaque HighHigh likelihood of significant stenosis (>50%) The amount of coronary artery calcification correlates with the severityof coronary atherosclerosis and the probability of future significantevent. Calcification is not site specific for stenosis and does notidentify non-calcified atherosclerotic plaque, but rather indicates theextent of atherosclerosis in the coronary arteries overall. The score may be used as an indicator for risk factor modification oradditional cardiac testing. Significant change in calcium score over timemay be indicative of subsequent disease development or useful as abenchmark to assess preventative programs. =====IMPRESSION:===== Total Score: 0 No plaque, very low risk, very unlikely for probability ofsignificant CAD Ordered By: ANDRES IRENE Interpreted By: Parth Hernandez MD, 07/04/2024 2:53 PM us Andres Irene MD CT Final Res ult from Last 3 Months Insurance [employer] [facility] Address: [facility] [id number] [place] [address] Care Teams Deputy Attorney General Relationship Specialty Start Date End Date Naz Cm PA [address] [place] [id number] PCP - General PHYSICIAN [employer] TESTER 06/15/24
--- OUTSIDE RECORDS SUMMARY | 2024-07-08 16:21 | XMS_ITS ---
Author Organization Formerly [facility] [place] ([address]) Address [address] [place] [address] Care Team Providers Care Podiatric Technician Name Role Phone Naz Cm Primary Care Provider Unavailab Shruti Fallon Unavailable [phone] Shanel Palacios Unavailable [phone] REASON FOR VISIT Ongoing fixed rashes approximately every 3 months. Symptoms last for weeks and are treated with topical and OCS, most recent in 05/2023. Here for final patch reading at time stamp 168 hours., ARC follow-up- current treatment of Benadryl PRN. Medications Medication SIG (Take, Route, Fr equency, Duration) Notes Start Date End Date Status LEXAPRO 10 mg 1 tab(s) orally once a day Active ALPRAZOLAM 0.5 mg 1 tab(s) orally 3 times a day PRN Active CETIRIZINE 10 mg 1 tab(s) orally once a day for 30 days Active NASAL WASHES N/A as directed intranas ally as needed for 30 days Active CETIRIZINE 10 mg 1 tab(s) orally once a day for 30 days Active Social History Tobacco Use: Social History Observation Description Date Details (start date - stop date) Never Smoker NA - NA Smoking Smart Form: Question Answer Notes Are you a: never smoker Tobacco Control (Standard) Question Answer Notes Tobacco use: Nonsmoker Vital Signs Blood pressure systolic 111 mm Hg 06/21/19 24 Blood pressure diastolic 73 mm Hg 024 Height 64 in 06/21/2023 Weight 144.6 lbs 06/21/2023 BMI 24.82 kg/m2 06/21/2023 Oximetry 97 % 06/21/2023 Encounters Encounter Location Date Provider Diagnosis [facility] [address] [place] [address] 06/21/2023 Shanel Palacios Allergic rhinitis du e to pollen J30.1 ; Rash and other nonspecific skin eruption R21 ; Allergic rhinitis due to animal (cat) (dog) hair and dander J30.81 ; Other allergic rhinitis J30.89 and Other chronic allergic conjunctivitis H10.45 Assessments Encounter Date Diagnosis (ICD Code) Assessment Notes Treatment Notes Treatment Clinical Notes Section Notes 06/21/2023 Allergic rhinitis due to pollen (ICD-10 - J30.1) Lucinda clearly suffers from atopic disease based upon our skin testing and clinical history. Accordingly, we have introduced a new, aggressive medication regimen, discussed nasal washes and allergy-specific avoidance measures. We also discussed adjunctive therapies including subcutaneous, specific allergen immunotherapy as relates to the treatment and prevention of atopic disease. She is currently considering the risks, benefits and alternatives to this care. Risks: bleeding, infection, allergic reaction, anaphylaxis; Benefits: reduced need for medications, improved symptoms, disease modification. Alternatives: watch/wait, change medication regimen, improve allergy avoidance measures. - Continue medication regimen as above. - Patient is considering SCIT - to discuss further at follow-up. Recommend triple premedication if she starts SCIT. - Follow-up in approximately 4 weeks for further evaluation and management 06/21/2023 Rash and other nonspecific skin eruption (ICD-10 - R21) Ongoing intermittent, fixed rashes concerning for contact dermatitis. Worse with bronzers, sunscreens and fragrant products, though she is unable to identify which product. Unable to identify triggers or correlating factors. Treated with OCS in 11/2022 and 05/2023. Denies hives or other associated factors. - Previously recommended changing products to fragrance-free, dye-free, paraben free products and All Free and Clear Laundry Detergent. Recommend Vanicream line, samples given at initial visit. - Discussed the Soak, Smear, & Seal technique. Plan on bathing in tepid warm water for 20 minutes a day. Upon exiting tub, pat dry with soft cotton towel and apply a thick emollient to ALL skin surface to lock in moisture. - Keep nails short and avoid scratching. - Consider CIU, though patient reports rash remains fixed for several days. - Consider dermatology evaluation for potential biopsy. - Encouraged to journal and take pictures. - Patch testing with AC-1000 read today at 168 hours with additional sensitivities present and listed below. - Lucinda's information was entered into [place] database, she will receive an e-mail outlining products safe for her to use, avoid products containing ingredients that she is sensitive to. - Follow-up if rash returns despite plan as above 06/21/2023 Allergic rhinitis due to animal (cat) (dog) hair and dander (ICD-10 - J30.81) Follow allergen avoidance, meds and consider SCIT as an adjunctive treatment to current regimen 06/21/2023 Other allergic rhinitis (ICD-10 - J30.89) Follow allergen avoidance, meds and consider SCIT as an adjunctive treatment to current regimen 06/21/2023 Other chronic allergic conjunctivitis (ICD-10 - H10.45) Given ocular signs and symptoms I encouraged allergy avoidance measures and meds as above. If symptoms persist, consider adding additional medications including intraocular antihistamine/mas t cell stabilizer, PRN and consider SCIT as an adjunctive measure Plan Of Treatment Medication Medication Name Sig Start Date Stop Date Notes CETIRIZINE 10 mg 1 tab(s) orally once a day for 30 days NASAL WASHES N/A as directed intranas ally as needed for 30 days Treatment Notes Assessment Notes Allergic rhinitis due to pollen Lucinda clearly suffers from atopic disease based upon our skin testing and clinical history. Accordingly, we have introduced a new, aggressive medication regimen, discussed nasal washes and allergy-specific avoidance measures. We also discussed adjunctive therapies including subcutaneous, specific allergen immunotherapy as relates to the treatment and prevention of atopic disease. She is currently considering the risks, benefits and alternatives to this care. Risks: bleeding, infection, allergic reaction, anaphylaxis; Benefits: reduced need for medications, improved symptoms, disease modification. Alternatives: watch/wait, change medication regimen, improve allergy avoidance measures. - Continue medication regimen as above. - Patient is considering SCIT - to discuss further at follow-up. Recommend triple premedication if she starts SCIT. - Follow-up in approximately 4 weeks for further evaluation and management Rash and other nonspecific skin eruption Ongoing intermittent, fixed rashes concerning for contact dermatitis. Worse with bronzers, sunscreens and fragrant products, though she is unable to identify which product. Unable to identify triggers or correlating factors. Treated with OCS in 11/2022 and 05/2023. Denies hives or other associated factors. - Previously recommended changing products to fragrance-free, dye-free, paraben free products and All Free and Clear Laundry Detergent. Recommend Vanicream line, samples given at initial visit. - Discussed the Soak, Smear, & Seal technique. Plan on bathing in tepid warm water for 20 minutes a day. Upon exiting tub, pat dry with soft cotton towel and apply a thick emollient to ALL skin surface to lock in moisture. - Keep nails short and avoid scratching. - Consider CIU, though patient reports rash remains fixed for several days. - Consider dermatology evaluation for potential biopsy. - Encouraged to journal and take pictures. - Patch testing with AC-1000 read today at 168 hours with additional sensitivities present and listed below. - Lucinda's information was entered into [place] database, she will receive an e-mail outlining products safe for her to use, avoid products containing ingredients that she is sensitive to. - Follow-up if rash returns despite plan as above Allergic rhinitis due to ani mal (cat) (dog) hair and dander Follow allergen avoidance, meds and consider SCIT as an adjunctive treatment to current regimen Other allergic rhinitis Follow allergen avoidance, meds and consider SCIT as an adjunctive treatment to current regimen Other chronic allergic conjunctivitis Gi babak ocular signs and symptoms I encouraged allergy avoidance measures and meds as above. If symptoms persist, consider adding additional medications including intraocular antihistamine/mast cell stabilizer, PRN and consider SCIT as an adjunctive measure Next Appt Details Follow Up: 4 Weeks, Reason: Evaluation and Management Procedure Notes * Category Sub-Category Detail Notes Patch Testing Patch testing (DI-1813-Aiayhare Core Series) was performed using the [employer] NAC-80 test patch testing delivery system (most common topical allergens causing delayed-type hypersensitivity reactions), Positive reactions graded:, METHYLISOTHIAZOLINONE, p-Phenylenediamine (PPD, IR (irritant reaction) to, Disperse Blue 106/124 Mix, The information from patch testing was placed into the [place] registry and a report regarding our clinical findings was e-mailed to the patient Progress Notes * Valeri ARELLANO: 2 (42 yo F)Acc No.[id number]:06/21/2023 Progress Note Patient: Lucinda SANDERS Provider: SARANYA Alanis :1980 A ge:42 Y S ex:Female Date:06/21/2023 Address:[address] [place] [address] [facility] Pcp:Naz Cm Subjective: * Chief Complaints: * O ngoing fixed rashes approximately every 3 months. Symptoms last for weeks and are treated with topical and OCS, most recent in 05/2023. Here for final patch reading at time stamp 168 hours.ARC follow-up- current treatment of Benadryl PRN. * HPI: * Introduction: I had the pleasure of seeing A mary ann Arellano, a 42-year-old female with history of ARC who returns for final patch read at timestamp 168 hours. She is alone for today's visit. At Lucinda's initial visit, she reported ongoing, intermittent rashes for the past 14 years. Lately, she feels rash is occurring every 3-4 months. States she feels her skin has become more sensitive to products after her 3rd child was born. She describes the rashes as intensely itchy and fixed in place. She feels rash will remain in 1 location, wherever the offending product is applied, but will spread. She feels rashes are more prevalent in the summer when attempting to find a certain sunscreen. Symptom onset occurs approximately 5 hours after application. Rash will last for approximately 1-2 weeks. If circled area of rash, it will last for more than 24 hours. Lucinda describes rash as itchy bumps that spread. Attempted several topical creams, TAC cream with improvement in symptoms. Often times ends up on PO steroids. Previously on steroids in beginning of 05/2023, last in 11/2022. She denies swelling, associated hives. Denies NSAID, alcohol, opioid use. Current products consist of Sugar body wash, Active Shampoo, Pose facial wash, Tide laundry detergent, denies lotion regularly, but will use Laura PRN. She denies dermatology evaluation. Lucinda also reported eye watering, sneezing. Skin testing to aeroallergens was performed at initial visit and showed positive results to multiple seasonal and perennial allergens.Current treatment consists of Benadryl PRN. Symptoms are worse in the Spring and Fall. She also reports mouth tingling/numbness with cinnamon. No other IgE- associated symptoms. Today, she reports no fevers, chills, night sweats or other constitutional symptoms. * ROS: A LLERGY: Positive p er the HPI and history, otherwise unremarkable.?runny nose Y es. s cratchy throat Y es. i tchy eyes Y es. e ar fullness?Yes. s inus congestion N o. S PECIAL SENSES: Positve for n one. c ataracts N o. g laucoma?No. l oss of hearing N o. i tching in ears N o. r inging in ears N o.?loss of balance N o. l oss of smell N o. d ry eyes Y es. e xcessive tearing Y es. i tching eyes N o. l oss of taste N o. c onjunctivitis N o. e ar infections N o. C ONSTITUTIONAL: weight gain Y es. l oss of appetite N o. f ever?No. w eakness N o. w eight loss N o. f atigue Y es. n ight sweats?Yes. P ositive for n one. E NT: cold N o. c ough N o. e pistaxis N o. h earing loss N o. c hange in voice N o. s ore throat N o. r inging in ears?No. s inus pain N o. P ositive p er the HPI and history, otherwise unremarkable.? R ESPIRATORY: shortness of breath N o. c hest pain N o. c hest congestion N o. c ough N o. P ositive p er the HPI and history, otherwise unremakable. O PHTHALMOLOGY: diminished vision N o. e ye irritation N o. d rainage from eyes N o. b lurring of vision N o. s easonal eye sx N o. P ositive for p er the HPI and history, otherwise unremarkable. i tching N o. s ensitivity to light Y es. d ischarge N o. w atering Y es. s welling of the eyelids Y es. r edness N o. E NDOCRINOLOGY: fatigue Y es. p olydipsia N o. p olyuria Y es. w eight loss N o. s leep disturbance N o. c old intolerance N o. h eat intolerance N o. d iabetes N o. P ositive for n one. C ARDIOLOGY: chest pain N o. p alpitations Y es. l eg edema?No. d izziness N o. s hortness of breath N o. P ositive for n one. G ASTROENTEROLOGY: dysphagia N o. a bdominal pain Y es. n ausea?No. v omiting N o. c onstipation Y es. d iarrhea N o. b lood in stool?No. i ndigestion N o. h emorrhoids Y es. P ositive for n one. ? U ROLOGY: difficulty urinating N o. b lood in urine N o. f requent urination Y es. u rinary incontinence N o. r ecurrent UTI N o. P ositive for n one. D ERMATOLOGY: rash Y es. m ole Y es. l umps N o. d ry or sensitive skin Y es. h salma (urticaria) Y es. a cne N o. s kin cancer?No. P ositive for p er the HPI and history, otherwise unremakable. N EUROLOGY: headache Y es. t ingling numbness N o. s eizures N o. i nsomnia N o. m carina loss N o. d izziness N o. g ait abnormality N o. P ositive for n one. H EMATOLOGY/LYMPH: Positive for n one. M USCULOSKELETAL: joint swelling N o. j oint pain N o. l eg cramps N o. j oint stiffness N o. s ciatica N o. o steoporosis N o. f racture N o. c arpal tunnel N o. g out N o. P ositive for n one. P SYCHOLOGY: high stress level N o. d epression N o. s leep disturbances N o. s uicidal ideation N o. e ating disorder N o. m ental or physical abuse N o. a nxiety Y es. P ositive for n one. F EMALE REPRODUCTIVE: heavy periods N o. h ot flashes N o. a bnormal vaginal discharge N o. s exually active Y es. i nfertility N o. f requent yeat infections N o. p elvic pain N o. b reast pain N o. n ipple discharge No. A re you ? N o. A re you planning on a future pregancy? N o. ? A ll other review of systems per the HPI and history, otherwise unremarkable. * Medical History: * Surgical History: A ppendectomy 05/22/2021hysterectomy 2016Right hip labral tear 06/17/2018right hip surgery 2018right shoulder labral tear 01/21/2018right shoulder surgery 2018appendectomy 2020hysterectomy 08/03/2016cystb removed left wrist 2021 * Hospitalization/Major Diagno stic Procedure: N o Hospitalization History. * Family History: F ather: Yes. M other: Yes. P aternal Grand Father: No. P aternal Grand Mother: Yes. M aternal Grand Father: Yes. M aternal Grand Mother: Yes. P aternal uncle: Yes. P aternal aunt: Yes. M aternal uncle: Yes. M aternal aunt: Yes. S iblings: Yes. C hildren: Yes. 1 sister(s) . 1 son(s) , 2 daughter(s) - healthy. . mother- breast cancer, sister-chrons. * Social History: M arital Status What is your marital status? m arried A lcohol Screening Do you ever drink alcoholic beverages? Y es Number of drinks per occasion: 2 Frequency? M rashad S moking Have you ever smoked tobacco: n ever smoked Are you a : n ever smoker S moking Smart Form Are you a: n ever smoker R ecreational drug use Have you ever used recreational drugs? N o D etails on consumption of certain products? Do you regularly consume products with aspartame; Equal or NutraSweet? N o Do you regularly consume products with artificial coloring??Yes Have you ever noticed worsening of your rash with these food items? N o E xercise What kind(s) of exercise do you perform regularly? w alking,jogging,cardio How often do you perform this exercise? w eekly A re any of the following personal care products containing fragrance, dye or preservatives used regularly? Shampoo: Y es Conditioner: Y es Soap: Y es Laundry Detergent: Y es Fabric Softener: Y es Deodorant: Y es Perfume, cologne, after shave: Y es Air freshners or other scented products: N o Hair coloring dyes or rinses: Y es O ccupation Are you currenly employed? Y es Employment status? 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 number of years?15 Do you have any pending or planned legal action against your current or former employer which pertains to your medical illness? N o Do you anticipate that your evaluation will be used in any legal action against your current employer or former employer? N o Have you had any job with high exposure to fumes, chemicals, dust or other noxious substances? N o Are you currently a student? N o E nvironmental History Living environment: p rivate home Where is the home located? r ural Age of home: 8 How long have you lived there? 5 years or more How many people live in the home? 5 H ome description Basement: Y es Any water damage in basement? N o Smokers in the home? N o Smokers outside the home? N o Air Conditioning? Y es Central Air? Y es Forced air heating? N o Fireplace? Y es Used how often? w inter months only Wood burning stove? N o Do you vacuum the home? Y es Air purification systems? N o Pillow and mattress dust-proof encasings? N o Do you use a humidifier? Y es Whole house or room? r oom humidifier Does it have a humidistat? N o Is it used year-round, seasonal, or as needed? s easonal Is the humidifier cleaned regularly? Y es Do you own any pets? Y es What kind(s)? (click all that apply) d og Where do your pets sleep? a nywhere in the house Fabric softeners used? Y es Plants in the home? N o Is there carpeting in your bedroom? Y es Age of carpet? 8 Do you have ujee-jn-ptnc carpeting? N o What is the age of your mattress (years)? 1 What material(s) are used to manufacture your bedding and pillow? s ynthetic What is the age of your pillow (years)? 2 What material are your bedding items made of? s ynthetic Do you sleep with quilts or blankets or a duvet? Y es What material? n atural fiber (e.g. cotton) How many dogs? 2 T obacco Control (Standard) Tobacco use: N onsmoker * Medications: T akingcetirizine 10 mg tablet 1 tab(s) orally once a day Nasal Washes N/A 1 quart of sterilized tap water or distilled water, 1 tsp NaCl, 1 pinch of baking soda as directed intranasally as needed cetirizine 10 mg tablet 1 tab(s) orally once a day ALPRAZolam 0.5 mg tablet 1 tab(s) orally 3 times a day , Notes to Pharmacist: PRNLexapro 10 mg tablet 1 tab(s) orally once a day Medication List reviewed and reconciled with the patientTaking cetirizine 10 mg tablet 1 tab(s) orally once a day Taking Nasal Washes N/A 1 quart of sterilized tap water or distilled water, 1 tsp NaCl, 1 pinch of baking soda as directed intranasally as needed Taking cetirizine 10 mg tablet 1 tab(s) orally once a day Taking ALPRAZolam 0.5 mg tablet 1 tab(s) orally 3 times a day , Notes to Pharmacist: PRNTaking Lexapro 10 mg tablet 1 tab(s) orally once a day Medication List reviewed and reconciled with the patient * Allergies: n o[Allergies Verified] Objective: * Vitals: B P:111/73mm Hg, HR:64/min, Pulse Oximetry:97%, Ht: 64 in, Wt: 144.6 lbs, BMI:24.82Index. * Examination: G eneral examination: General appearance: p leasant, well-developed, well-nourished, female, in no apparent distress, speaking in full sentences. HEENT: c onjunctiva are normal bilaterally. Oral cavity: n ormal, no lesions. Breasts : n ot performed. Neurologic exam: u nremarkable. Skin: n ormal, no visible rash, dermatographism, urticaria, angioedema. Back: n ormal. Genitalia: n ot performed. Assessment: * Assessment: 1. R marya and other nonspecific skin eruption - R21 (Primary) 2 . A llergic rhinitis due to pollen - J30.1 3 . A llergic rhinitis due to animal (cat) (dog) hair and dander - J30.81 4. O ther allergic rhinitis - J30.89 5 . O ther chronic allergic conjunctivitis - H10.45 Plan: * Treatment: 2. A llergic rhinitis due to pollen Continue Cetirizine tablet, 10 mg, 1 tab(s), orally, once a day, 30 days, 30, Refills 0; C ontinue Nasal Washes 1 quart of sterilized tap water or distilled water, 1 tsp NaCl, 1 pinch of baking soda, N/A, as directed, intranasally, as needed, 30 days, 1, Refills 0. Notes: Lucinda clearly suffers from atopic disease based upon our skin testing and clinical history. Accordingly, we have introduced a new, aggressive medication regimen, discussed nasal washes and allergy-specific avoidance measures. We also discussed adjunctive therapies including subcutaneous, specific allergen immunotherapy as relates to the treatment and prevention of atopic disease. She is currently considering the risks, benefits and alternatives to this care. Risks: bleeding, infection, allergic reaction, anaphylaxis; Benefits: reduced need for medications, improved symptoms, disease modification. Alternatives: watch/wait, change medication regimen, improve allergy avoidance measures. - Continue medication regimen as above. - Patient is considering SCIT - to discuss further at follow-up. Recommend triple premedication if she starts SCIT. - Follow-up in approximately 4 weeks for further evaluation and management 3. A llergic rhinitis due to animal (cat) (dog) hair and dander Notes: Follow allergen avoidance, meds and consider SCIT as an adjunctive treatment to current regimen 4. O ther allergic rhinitis Notes: Follow allergen avoidance, meds and consider SCIT as an adjunctive treatment to current regimen 5. O ther chronic allergic conjunctivitis Notes: Given ocular signs and symptoms I encouraged allergy avoidance measures and meds as above. If symptoms persist, consider adding additional medications including intraocular antihistamine/mast cell stabilizer, PRN and consider SCIT as an adjunctive measure * Procedures: P atch Testing: Patch testing (JC-9960-Icalzqml Core Series) w as performed using the [employer] NAC-80 test patch testing delivery system (most common topical allergens causing delayed-type hypersensitivity reactions), Positive reactions graded:, METHYLISOTHIAZOLINONE, p-Phenylenediamine (PPD, IR (irritant reaction) to, Disperse Blue 106/124 Mix, The information from patch testing was placed into the [place] registry and a report regarding our clinical findings was e-mailed to the patient. * Procedure Codes: 9 4760 MEASURE BLOOD OXYGEN [id number] DOC MEDS VERIFIED W/PT OR RE * Preventive Medicine: Counseling: D iet a s tolerated. E xercise L imit exercise while patch test is secured, Avoid bathing, showering while patch test is secured and after removal during read phase of procedure through 168 hours. E ducation: S KIN CARE EDUCATION:, Skin care regimen reviewed with patient, Daily bathing to add moisture to skin, Apply moisturizing cream head-to-toe to lock in moisture within 2 minutes of exiting bath, Avoid fragrances, dyes, preservatives in personal care products. P atient education material sent to portal? Y es * Follow Up: 4 Weeks (Reason: Evaluation and Management) * Billing Information: * Visit Code: 05494 Office Visit, Est Pt., Level 3. Modifiers: 25 * Procedure Codes: 68689 MEASURE BLOOD OXYGEN LEVEL. G8427 DOC MEDS VERIFIED W/PT OR RE. * Electronically co-signed by Abdulaziz Rowley MD, FAAAAI on 09/26/2023 at 02:50 PM CDT Sign off status: Completed true * Provider: SARANYA Alanis-C Date: 0 06/21/2023 Generated for Gilles johnson/Myke/Matias on: 0 07/08/2024 04:21 PM CDT History and Physical Notes * HPI (History of Present Illness) Category Sub-Category Detail Notes Category Not es *Introduction I had the pleasure o f seeing Lucinda Arellano, a 42-year-old female with history of ARC who returns for final patch read at timestamp 168 hours. She is alone for today's visit. At Lucinda's initial visit, she reported ongoing, intermittent rashes for the past 14 years. Lately, she feels rash is occurring every 3-4 months. States she feels her skin has become more sensitive to products after her 3rd child was born. She describes the rashes as intensely itchy and fixed in place. She feels rash will remain in 1 location, wherever the offending product is applied, but will spread. She feels rashes are more prevalent in the summer when attempting to find a certain sunscreen. Symptom onset occurs approximately 5 hours after application. Rash will last for approximately 1-2 weeks. If circled area of rash, it will last for more than 24 hours. Lucinda describes rash as itchy bumps that spread. Attempted several topical creams, TAC cream with improvement in symptoms. Often times ends up on PO steroids. Previously on steroids in beginning of 05/2023, last in 11/2022. She denies swelling, associated hives. Denies NSAID, alcohol, opioid use. Current products consist of Sugar body wash, Active Shampoo, Pose facial wash, Tide laundry detergent, denies lotion regularly, but will use Laura PRN. She denies dermatology evaluation. Lucinda also reported eye watering, sneezing. Skin testing to aeroallergens was performed at initial visit and showed positive results to multiple seasonal and perennial allergens. Current treatment consists of Benadryl PRN. Symptoms are worse in the Spring and Fall. She also reports mouth tingling/numbness with cinnamon. No other IgE- associated symptoms. Today, she reports no fevers, chills, night sweats or other constitutional symptoms Examination Category Sub-Category Detail Notes Category Not es General examination HEENT: conjunctiva are jame l bilaterally General appearance: pleasant, well-devel oped, well-nourished, female, in no apparent distress, speaking in full sentences Skin: normal, no visible r marya, dermatographism, urticaria, angioedema Neurologic exam: unremarkable Oral cavity: normal, no lesions Breasts : not performed Back: normal Genitalia: not performed
--- OUTSIDE RECORDS SUMMARY | 2024-07-08 16:21 | XMS_ITS | Patient Health Record ---
Author Organization [facility] [place] Address [address] [address] Care Team Providers Care Sign Board Erector Name Role Phone Rene Henry [phone] ALLERGIES No Known Allergies REASON FOR REFERRAL No Information MEDICATIONS Medication SIG (Take, Route, Frequency, Duration) Notes Start Date End Date Status Escitalopram Oxalate 10 MG 1 tablet Oral ly Once a day Active SOCIAL HISTORY Tobacco Use: Social History Observation Description Date Details (start date - stop date) Never Smoker NA - NA Sex Assigned At : Social History Observation Description Sex Assigned At Unknown Tobacco Use/Smoking Question Answer Notes Are you a nonsmoker PROBLEMS Problem Type ICD Code Onset Dates Problem Status W/U Status Risk SNOMED Code Notes Problem Spondylosis without myelopathy or radiculopathy, lumbosacral region (M47.817) Active confirmed Lumbosacral spondylosis without myelopathy (disorder) (87667046) Problem Bulge 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
--- OUTSIDE RECORDS SUMMARY | 2024-07-08 16:21 | XMS_ITS ---
Author Organization [facility] [place] ([address]) Address [address] [place] [address] Care Team Providers Care Stage Settings Painter Name Role Phone Naz Cm Primary Care Provider UnavailShruti Jansen Unavailable [phone] Allergies No Known Allergies REASON FOR VISIT Ongoing fixed rashes approximately every 3 months. Symptoms last for weeks and are treated with topical and OCS, most recent in 05/2023. Here for patch testing read number 2 at 72 hours., Chronic upper airway symptoms concerning for uncontrolled atopic disease - current treatment of Benadryl PRN Medications Medication SIG (Take, Route, Fr equency, Duration) Notes Start Date End Date Status CETIRIZINE 10 mg 1 tab(s) orally once a day for 30 days Active ALPRAZOLAM 0.5 mg 1 tab(s) orally 3 times a day PRN Active LEXAPRO 10 mg 1 tab(s) orally once a day Active NASAL WASHES N/A as directed intranas [...] use: Nonsmoker Vital Signs Blood pressure systolic 107 mm Hg 06/17/19 24 Blood pressure diastolic 73 mm Hg 024 Height 64 in 06/17/2023 Weight 143.4 lbs 06/17/2023 BMI 24.61 kg/m2 06/17/2023 Oximetry 99 % 06/17/2023 Encounters Encounter Location Date Provider Diagnosis [facility] [place] [address] [facility] [address] [place] [address] 06/17/2023 Shruti Hidalgo Allergic rhinitis du e to pollen J30.1 ; Rash and other nonspecific skin eruption R21 ; Allergic rhinitis due to animal (cat) (dog) hair and dander J30.81 ; Other allergic rhinitis J30.89 and Other chronic allergic conjunctivitis H10.45 Assessments Encounter Date Diagnosis (ICD Code) Assessment Notes Treatment Notes Treatment Clinical Notes Section Notes 06/17/2023 Allergic rhinitis due to pollen (ICD-10 - [...] premedication if she starts SCIT. - Follow-up as scheduled 06/17/2023 Rash and other nonspecific skin eruption (ICD-10 [...] Patch testing with AC-1000 read today at 72 hours with several sensitivities present and listed below. - She was instructed to keep her back dry and avoid topical steroids until patch testing is complete. - Return Wednesday for patch read #3 at 168 hours 06/17/2023 Allergic rhinitis due to animal (cat) (dog) hair and dander (ICD-10 - J30.81) Follow allergen avoidance, meds and consider SCIT as an adjunctive treatment to current regimen 06/17/2023 Other allergic rhinitis (ICD-10 - J30.89) Follow allergen avoidance, meds and consider SCIT as an adjunctive treatment to current regimen 06/17/2023 Other chronic allergic conjunctivitis (ICD-10 - H10.45) Given ocular signs and symptoms I encouraged allergy avoidance measures and meds as above. If symptoms persist, consider adding additional medications including intraocular antihistamine/mas t cell stabilizer, PRN and consider SCIT as an adjunctive measure Plan Of Treatment Medication Medication Name Sig Start Date Stop Date Notes NASAL WASHES N/A as directed intranas ally as needed for 30 days CETIRIZINE 10 mg 1 tab(s) orally once a day for 30 days Treatment Notes Assessment Notes [...] premedication if she starts SCIT. - Follow-up as scheduled Rash and other nonspecific skin eruption Ongoing [...] Patch testing with AC-1000 read today at 72 hours with several sensitivities present and listed below. - She was instructed to keep her back dry and avoid topical steroids until patch testing is complete. - Return Wednesday for patch read #3 at 168 hours Allergic rhinitis due to ani mal (cat) [...] measure Next Appt Details Follow Up: 4 Days, Reason: P atch Testing: Reading @ 168 hours (1 week) Procedure Notes * Category Sub-Category Detail Notes Patch Testing (Please insert time stamp) Kim Song 06/17/2023 04:30 PM CDT > Patch testing ([id number] can Core Series) was performed using the AC-1000 Japanese Core Series test patch testing delivery system (most common topical allergens causing delayed-type hypersensitivity reactions), Positive reactions graded:, +, Methylisothiazolinone, IR (irritant reaction) to:, Myroxylon Pereirae Resin/ (Balsam of Helm), Mercapto Mix, Diazolidinylurea (Germall II), Disperse Blue 106/124 Mix, Tocopherol/ DL alpha tocopherol, benzoic acid, carmine, at 72 hours, Pictures below, The patient will follow-up on the following dates for patch test reading:, at 168 hours (1 week) Progress Notes * Lucinda ARELLANODOB: 2 (42 yo F)Acc No.[id number]:06/17/2023 Progress Notes Patient: Lucinda SANDERS Provider: PAZ Cortez :1980 A ge:42 Y S ex:Female Date:06/17/2023 Address:[address] [place] [address] , [id number] Pcp:Naz Cm Subjective: * Chief Complaints: * O ngoing fixed rashes approximately every 3 months. Symptoms last for weeks and are treated with topical and OCS, most recent in 05/2023. Here for patch testing read number 2 at 72 hours.Chronic upper airway symptoms concerning for uncontrolled atopic disease - current treatment of Benadryl PRN * HPI: * Introduction: I had the pleasure of seeing A mary ann Arellano, a 42-year-old female with history of ARC who returns for patch read #2. She is alone for todays visit. At Lucinda's initial visit, she reported [...] results to multiple seasonal and perennial allergens. C urrent treament consists of Benadryl PRN. Symptoms are worse in the Spring and Fall. She also reports mouth tingling/numbness with cinnamon. No other IgE- associated symptoms. T kelly, she reports no fevers, chills, night sweats [...] 2016Right hip labral tear 06/17/2018right hip surgery 2017right shoulder labral tear 01/21/2018right shoulder surgery 2018appendectomy [...] drinks per occasion: 2 Frequency? M rashad Rudolph moking Have you ever smoked tobacco: n [...] Age of carpet? 8 Do you have [id number] carpeting? N o What is the age [...] and reconciled with the patient * Allergies: N .K.D.A.no[Allergies Verified] Objective: * Vitals: B P:107/73mm Hg, HR:66/min, Pulse Oximetry:99%, Ht: 64 in, Wt: 143.4 lbs, BMI:24.61Index. * Examination: G eneral examination: General appearance: [...] premedication if she starts SCIT. - Follow-up as scheduled 3. A llergic rhinitis due to animal [...] as an adjunctive measure * Procedures: P [facility] Testing: (Please insert time stamp) W Kim rae 06/17/2023 04:30 PM CDT >. Patch testing ([id number]-Lozulerr Core Series) w as performed using the AC-1000 Japanese Core Series test patch testing delivery system (most common topical allergens causing delayed-type hypersensitivity reactions), Positive reactions graded:, +, Methylisothiazolinone, IR (irritant reaction) to:, Myroxylon Pereirae Resin/ (Balsam of Joseph), Mercapto Mix, Diazolidinylurea (Germall II), Disperse Blue 106/124 Mix, Tocopherol/ DL alpha tocopherol, benzoic acid, carmine, at 72 hours, Pictures below, The patient will follow-up on the following dates for patch test reading:,at 168 hours (1 week). * Procedure Codes: 9 4760 MEASURE BLOOD OXYGEN [id number] DOC MEDS VERIFIED W/PT OR RE * [...] portal? Y es * Follow Up: 4 Days (Reason: Patch Testing: Reading @ 168 hours (1 week)) * Billing Information: * Visit Code: 25976 Office Visit, Est Pt., Level 3. Modifiers: 25 * Procedure Codes: 74435 MEASURE BLOOD OXYGEN LEVEL. G8427 DOC MEDS VERIFIED W/PT OR RE. Images * [id number] * Electronically co-signed by Abdulaziz Rowley MD, FAAAAI on 09/26/2023 at 02:50 PM CDT Sign off status: Completed true * Provider: PAZ Cortez Date: 0 06/17/2023 Generated for Gilles Diallo/Matias on: 0 07/08/2024 04:21 PM CDT History and Physical Notes * HPI (History of Present Illness) Category Sub-Category Detail Notes Category Not es *Introduction I had the pleasure o f seeing Lucinda Arellano, a 42-year-old female with history of ARC who returns for patch read #2. She is alone for todays visit. At Lucinda's initial visit, she reported [...] to multiple seasonal and perennial allergens. Current treament consists of Benadryl PRN. Symptoms are worse [...]
--- OUTSIDE RECORDS SUMMARY | 2024-07-08 16:21 | XMS_ITS | Patient Health Record ---
Author Organization [facility] Address [address] [facility] [address] [place] [address] Care Team Providers Care Disease Case Manager Rn Name Role Phone Venancio Reina MD [facility] [phone] Reason For Referral No Information Problems Problem Type SNOMED Code ICD Code Onset Dates Problem Status W/U Status Risk Notes Problem [id number] Constipation, unspecified (K59.00) Active confirmed Plan Of Treatment No Information Insurance Providers Payer Name Payer Address Payer Phone Subscriber Number Group Number Insured Name Patient Relationship to Insured Coverage Start Date Coverage End Date [employer] PPO E2 [address] [place] [address] [id number] Lucinda Ariza Self - patient is the insured
--- OUTSIDE RECORDS SUMMARY | 2024-07-08 16:22 | XMS_ITS | Patient Health Record ---
Author Organization [email or web address] [place] ([address]) Address [address] [place] [address] Care Team Providers Care Lube Attendant Name Role Phone Cm Naz Primary Care Provider Unavailab le Shruti Hidalgo Unavailable [phone] [facility], Provider Unavailable Unavailab le Allergies No Known Allergies Reason For Referral No Information Medications Medication SIG (Take, Route, Frequency, Duration) Notes Start Date End Date Status LEXAPRO 10 mg 1 tab(s) orally once a day Active ALPRAZOLAM 0.5 mg 1 tab(s) orally 3 times a day PRN Active CETIRIZINE 10 mg 1 tab(s) orally once a day for 30 days Active NASAL WASHES N/A DIRECTED INTRANASALLY NEEDED for 30 DAYS *Please review for potential replacement for e-prescription and drug interaction check* Active Lexapro 10 MG 1 tab(s) orally once a day Active Cetirizine HCl 10 MG 1 tab(s) orally once a day for 30 days Active ALPRAZolam 0.5 MG 1 [...] (Standard) Question Answer Notes Tobacco use: Nonsmoker Problems Problem Type SNOMED Code ICD Code Onset Dates Problem Status W/U Status Risk Notes Problem Chronic allergic conjunctivitis (51639461) Other chronic allergic conjunctivitis (H10.45) Active confirmed Problem Allergic rhinitis caused by pollen (disorder) (11347736) Allergic rhinitis due to pollen (J30.1) Active confirmed Problem Other allergic rhinitis (J30.89) Active confirmed Problem Allergic rhinitis caused by animal hair and dander (709631258492876) Allergic rhinitis due to animal (cat) (dog) hair and dander (J30.81) Active confirmed Encounters Encounter Location Date Provider Diagnosis [address] [address] 08/21/2023 Provider Yanira Allergic rhinitis due to pollen J30.1 Assessments Encounter Date Diagnosis (ICD Code) Assessment Notes Treatment Notes Treatment Clinical Notes Section Notes 08/21/2023 Allergic rhinitis due to pollen (ICD-10 - J30.1) Plan Of Treatment No Information Insurance Providers Payer Name Payer Address Payer Phone Subscriber Number Group Number Insured Name Patient Relationship to Insured Coverage Start Date [facility]age End Date [facility] [address] [place] [phone] [id number] Lucinda Ariza Self - patient is the insured Medical (General) History Surgical History Surgery Date(Month/Year) Appendectomy 05/22/2021 hysterectomy 2017 Right hip labral tear 06/17/2018 right hip surgery 2018 right shoulder labral tear 01/21/2018 right shoulder surgery 2018 appendectomy 2020 hysterectomy 08/03/2016 cystb removed left wrist 2021
--- OUTSIDE RECORDS SUMMARY | 2024-07-08 16:22 | XMS_ITS ---
Author Organization [facility] ([address]) Address [address] [place] [address] Care Team Providers Care State Fire Marshal Name Role Phone Naz Cm Primary Care Provider Unavailab le Shruti Hidalgo Unavailable [phone] [facility], Provider Unavailable Unavailab le [facility] Conversion Encounter Medications Medication SIG (Take, Route, Frequency, Duration) Notes Start Date End Date Status NASAL WASHES N/A DIRECTED INTRANASALLY NEEDED for 30 DAYS *Please review for potential replacement for e-prescription and drug interaction check* Active Lexapro 10 MG 1 tab(s) orally once a day Active Cetirizine HCl 10 MG 1 tab(s) orally once a day for 30 days Active ALPRAZolam 0.5 MG 1 tab(s) orally 3 times a day PRN Active Encounters Encounter Location Date Provider Diagnosis [address] [address] 08/21/2023 Provider ZZ-Migration Allergic rhinitis due to pollen J30.1 Assessments Encounter Date Diagnosis (ICD Code) Assessment Notes Treatment Notes Treatment Clinical Notes Section Notes 08/21/2023 Allergic rhinitis due to pollen (ICD-10 - J30.1) Plan Of Treatment Medication Medication Name Sig Start Date Stop Date Notes NASAL WASHES N/A DIRECTED INTRANASALLY NEEDED for 30 DAYS *Please review for potential replacement for e-prescription and drug interaction check* Cetirizine HCl 10 MG 1 tab(s) orally onc e a day for 30 days Progress Notes * Lucinda ARELLANODOB: 2 (43 yo F)Acc No.[id number]:08/21/2023 Patient: Lucinda SANDERS Provider: Donald Collins :1980 A ge:42 Y S ex:Female Date:08/21/2023 Address:[address] [place] [address] , [id number] Pcp:Naz Cm Subjective: * Chief Complaints: * [facility] . [facility] * Medical History: * Medications: [...] Electronic signature of Prov ider ZZ-Migration on 07/08/2024 at 04:21 PM CDT Sign off status: Pending * Provider: Donald Collins Date: 08/21/2023 Generated for Gilles johnson/Myke/Maitas on: 07/08/2024 04:21 PM CDT
== END 2024-07-08 11:05 | disposition home or self-care (01) ==
PROVIDERS: Emergency Provider Nurse Practitioner Family; PCP Physician Assistant Medical
DX: J02.0 Streptococcal pharyngitis (principal); F41.9 Anxiety disorder, unspecified
CPT/HCPCS: 87880; 99213; G0463

== ENCOUNTER 2024-11-03 18:15 | Emergency (ER) | payer OTHER, SELFPAY ==
--- OUTSIDE RECORDS SUMMARY | 2023-08-21 16:30 | XMS_ITS ---
Author Organization [facility] [place] ([address]) Address [address] [place] [address] Care Team Providers Care Quality Improvement Analyst Name Role Phone Naz Cm Primary Care Provider Unavailab le Shruti Hidalgo Unavailable [phone] [facility], Provider Unavailable Unavailab le [facility] Conversion Encounter Medications Medication SIG (Take, Route, Frequency, Duration) Notes Start Date End Date Status NASAL WASHES N/A DIRECTED INTRANASALLY NEEDED; Duration: 30 DAYS *Please review for potential replacement for e-prescription and drug interaction check* Active Lexapro 10 MG 1 tab(s) orally once a day Active Cetirizine HCl 10 MG 1 tab(s) orally once a day; Duration: 30 days Active ALPRAZolam 0.5 MG 1 tab(s) orally 3 times a day PRN Active Encounters Encounter Location Date Provider Diagnosis [address] [id number] 08/21/2023 Provider [facility] Allergic rhinitis due to pollen J30.1 Assessments Encounter Date Diagnosis (ICD Code) Assessment Notes Treatment Notes Treatment Clinical Notes Section Notes 08/21/2023 Allergic rhinitis due to pollen (ICD-10 - J30.1) Plan Of Treatment Medication Medication Name Sig Start Date Stop Date Notes NASAL WASHES N/A DIRECTED INTRANASALLY NEEDED; Duration: 30 DAYS *Please review for potential replacement for e-prescription and drug interaction check* Cetirizine HCl 10 MG 1 tab(s) orally onc e a day; Duration: 30 days Progress Notes * Lucinda ARELLANODOB: 2 (44 yo F)Acc No.[id number]:08/21/2023 Patient: Lucinda SANDERS Provider: Donald Collins :1980 A ge:42 Y S ex:Female Date:08/21/2023 Address:[address] [place] [address] , [place] [id number] Pcp:Naz Cm Subjective: * Chief Complaints: * 1 . [facility] To [facility] Conversion Encounter. * Medical History: * Medications: T aking Cetirizine HCl 10 MG Tablet 1 tab(s) orally once a day , Taking ALPRAZolam 0.5 MG Tablet 1 tab(s) orally 3 times a day , Notes to Pharmacist: PRN, Taking Lexapro 10 MG Tablet 1 tab(s) orally once a day Objective: * Vitals: Assessment: * Assessment: 1. A llergic rhinitis due to pollen - J30.1 Plan: * Treatment: * Billing Information: * Visit Code: * Procedure Codes: * Electronic signature of Prov ider [facility] on 11/03/2024 at 06:21 PM CDT Sign off status: Pending * Provider: Donald Collins Date: 08/21/2023 Generated for Gilles johnson/Myke/Matias on: 11/03/2024 06:21 PM CDT
--- NOTE | 2024-11-03 18:16 | ED_ITS ---
HPI - Skin/Abscess/Foreign Bdy General Chief complaint: Upper Respiratory Infection Stated complaint: nose irritation Time Seen by Provider: 11/03/24 18:16 Source: patient Mode of arrival: ambulatory Limitations: no limitations History of Present Illness HPI narrative: Lucinda is a 44 year old female patient presenting to the clinic today with c/o nose is sore to the right nostril. She reports symptoms started on Wednesday. History of staph infection in the past. Has tried some old mupirocin cream without relief. The area is painful to touch becoming more red and started draining some yellowish discoloration. No fevers, chills, or body aches. Related Data Allergies Allergy/AdvReac Type Severity Reaction Status Date / Time No Known Drug Allergies Allergy Mild Unknown Verified 11/03/24 18:23 Review of Systems Review of Systems: Pertinent positives per HPI. Patient denies any fever, chills, rash, headache, visual changes, dizziness, cough, runny nose, sore throat, shortness of breath, chest pain, palpitations, nausea, vomiting, diarrhea, constipation, abdominal pain, or any urinary issues. [facility] Past Medical History Medical History Constipation Vitamin B12 deficiency Anxiety Anemia Surgical History Surgical History H/O shoulder surgery History of hip replacement, total History of appendectomy H/O: hysterectomy Hx laparoscopic cholecystectomy Family History Family History Mother Breast cancer Father Hypertension Depression Grandparent Heart disease Social History Social History Social History: 06/01/24 very confident with medical forms Smoking status: Never smoker Second hand tobacco smoke exposure: No Alcohol intake: never Substance use: never Do You Feel Safe in your Home?: Yes Lack of Transportation: No Lack of Food: Never True Current Housing: I Have Housing Concerned About Future Housing: No Difficulty Paying Gas/Electric Bills: No Difficulty Paying for Meds: No Currently Unemployed: No Education: Bachelor's Degree Difficulty w/ Childcare or Family Care: No Living arrangements: with family Occupation/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 There is no relevant family history pertinent to the patient complaint. Exam Narrative: General: Well-developed, well nourished, in no apparent distress Head: Normocephalic, atraumatic Eyes: Pupils equally round and reactive to light bilaterally, EOM intact, sclera and conjunctive clear, no discharge, lids normal Ears: TMs intact and clear, ear canals clear, no drainage, grossly hearing normal. Nose: Nares patent, no discharge, sore to the right nostril with yellow crusting, tenderness to palpation without induration, no sinus tenderness. Mouth: Oropharynx without lesions or masses, good dentition, MMM. Neck: Supple, trachea midline, no enlargement of anterior or posterior cervical nodes, no thyroid masses or goiter palpable. Cardio: Regular rate and rhythm, s1 and s2 normal, no murmur appreciated. Resp: Clear to auscultation bilaterally anteriorly and posteriorly, no rhonchi, rales, wheezing or rubs Course Course Emergency Course: Portions of this record may have been created with voice recognition software. Level of Care: Express Care Visit Vital Signs Vital signs: Vital Signs Temperature 36.2 C L 11/03/24 18:23 Pulse Rate 71 11/03/24 18:23 Respiratory Rate 18 11/03/24 18:23 Blood Pressure 104/62 11/03/24 18:23 Pulse Oximetry 99 11/03/24 18:23 Oxygen Delivery Room Air 11/03/24 18:23 Temperature 36.2 C L 11/03/24 18:23 Pulse Rate 71 11/03/24 18:23 Respiratory Rate 18 11/03/24 18:23 Blood Pressure 104/62 11/03/24 18:23 Pulse Oximetry 99 11/03/24 18:23 Oxygen Delivery Room Air 11/03/24 18:23 Vital signs reviewed MDM - Skin/Abscess/Foreign Bdy MDM Narrative Medical decision making narrative: At the time of visit patient is resting comfortably on the exam table. Patient appears to be nontoxic. C/o nose is sore to the right nostril. She reports symptoms started on Major. History of staph infection in the past. Has tried some old mupirocin cream without relief. The area is painful to touch becoming more red and started draining some yellowish discoloration. No fevers, chills, or body aches. On exam patient has a sore to the right inner nostril with localized redness, mildly tender to palpation, and yellow crusting. Plan: I suspect patient has a staph infection to the right nostril. Prescription for mupirocin cream and cephalexin was sent to the pharmacy. Supportive measures were discussed with the patient and they voiced understanding discharge instructions and agrees to treatment plan. Return precautions reviewed Differential Diagnosis Differential diagnosis: Likely abscess of skin or subcutaneous tissue, viral exanthem, dermatophytosis, urticaria, herpes zoster, allergic reaction to drug, cellulitis, eczema, insect bites, impetigo and contact dermatitis Discharge Plan Discharge Clinical Impression: Staphylococcus infection of nose Patient Disposition: Home Condition: Stable Instructions: Antibiotic Form, Wound Infection (ED) Additional Instructions: Apply mupirocin as directed Take cephalexin as prescribed Keep area clean and dry Watch for signs worsening infection-fever, increase in pain, increase in swelling, increase in redness, discharge, or streaking Follow-up with your PCP in 2-3 days for wound check Patient Language: Macedonian Prescriptions: New mupirocin [Centany] 2 % ointment 1 applic topical BID 7 Days Qty: 22 0RF cephalexin 500 mg capsule 500 mg PO Q8H 7 Days Qty: 21 0RF No Action escitalopram oxalate [Lexapro] 10 mg tablet 10 mg PO DAILY Qty: 90 0RF Follow-up/Referrals: Naz Cm PA-C [Primary Care Provider, Family Practice] Time of Disposition: 18:28 Quality NIHSS Nursing Documentation ED NIHSS nursing documentation: reviewed/agree
--- OUTSIDE RECORDS SUMMARY | 2024-11-03 18:21 | XMS_ITS | Patient Health Record ---
Author Organization [facility] [employer] [address] [place] ([address]) Address [address] [place] [address] Care Team Providers Care Vaccinator Name Role Phone Naz Cm Primary Care Provider UnavailShruti Jansen Unavailable [phone] Allergies No Known Allergies Reason For Referral No Information Medications Medication SIG (Take, Route, Frequency, Duration) Notes Start Date End Date Status LEXAPRO 10 mg 1 tab(s) orally once a day Active ALPRAZOLAM 0.5 mg 1 tab(s) orally 3 times a day PRN Active CETIRIZINE 10 mg 1 tab(s) orally once a day; Duration: 30 days Active NASAL WASHES N/A DIRECTED INTRANASALLY NEEDED; Duration: [...] 10 mg 1 tab(s) orally once a day; Duration: 30 days Active Social History Tobacco Use: Social History Observation Description Date Details (start date - stop date) Never Smoker NA - NA Smoking Smart Form: Question Answer Notes Are you a: never smoker Tobacco Control (Standard) Question Answer Notes Tobacco use: Nonsmoker Problems Problem Type SNOMED Code ICD Code Onset Dates Problem Status W/U Status Risk Notes Problem Chronic allergic conjunctivitis (58382931) Other chronic allergic conjunctivitis (H10.45) Active confirmed Problem Allergic rhinitis caused by pollen (disorder) (94175978) Allergic rhinitis due to pollen (J30.1) Active confirmed Problem Allergic rhinitis (73607144) Other allergic rhinitis (J30.89) Active confirmed Problem Allergic rhinitis caused by animal hair and dander (901607790536802) Allergic rhinitis due to animal (cat) (dog) hair and dander (J30.81) Active confirmed Plan Of Treatment No Information Insurance Providers Payer Name Payer Address Payer Phone Subscriber Number Group Number Insured Name Patient Relationship to Insured Coverage Start Date Coverage End Date [employer] [address] [place] [address] [id number] Lucinda Ariza Self - patient is the insured Medical (General) History Surgical History Surgery Date(Month/Year) Appendectomy 05/22/2021 hysterectomy 2017 Right hip labral tear 06/17/2018 right hip surgery 2018 right shoulder labral tear 01/21/2018 right shoulder surgery 2018 appendectomy 2020 hysterectomy 08/03/2016 cystb removed left wrist 2021
--- OUTSIDE RECORDS SUMMARY | 2024-11-03 18:21 | XMS_ITS | Patient Health Record ---
Author Organization [facility] Address [address] [facility] [address] [place] [address] Care Team Providers Care Manager Entry Name Role Phone Venancio Reina MD [facility] [phone] Reason For Referral No Information Problems Problem Type SNOMED Code ICD Code Onset Dates Problem Status W/U Status Risk Notes Problem [id number] Constipation, unspecified (K59.00) Active confirmed Plan Of Treatment No Information Insurance Providers Payer Name Payer Address Payer Phone Subscriber Number Group Number Insured Name Patient Relationship to Insured Coverage Start Date Coverage End Date [employer] PPO E2 [address] [place] [address] [id number] Lucinda Ariza Self - patient is the insured
--- OUTSIDE RECORDS SUMMARY | 2024-11-03 18:21 | XMS_ITS | Patient Health Record ---
Author Organization [facility] [place] Address [address] [place] [address] Care Team Providers Care Statistics Professor Name Role Phone Rene Henry [phone] Allergies No Known Allergies Reason For Referral No Information Medications Medication SIG (Take, Route, Frequency, Duration) Notes Start Date End Date Status Escitalopram Oxalate 10 MG 1 tablet Oral ly Once a day Active Social History Tobacco Use: Social History Observation Description Date Details (start date - stop date) Never Smoker NA - NA Tobacco Use/Smoking Question Answer Notes Are you a nonsmoker Problems Problem Type SNOMED Code ICD Code Onset Dates Problem Status W/U Status Risk Notes Problem Lumbosacral spondylosis without myelopathy (disorder) (28686378) Spondylosis without myelopathy or radiculopathy, lumbosacral region (M47.817) Active confirmed Problem 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
--- OUTSIDE RECORDS SUMMARY | 2024-11-03 18:21 | XMS_ITS | Clinical Summary ---
Author Organization [facility] Address [facility] [place] [address] Care Team Providers Care Roofer [employer] Name Role Phone Naz Cm Primary Care Provider [phone] Encounters Date Type Department Care Team Description 08/11/2024 [facility] [address] [phone] Molly Chew RN CLINIC - OUTPATIENT EVENT RECORDER (ECG) UP TO 30 DAYS COMPLETE (Holter) from Last 3 Months Social History Tobacco [...] 9:05 AM CDT Height 162.6 cm (5' 4) 10/18/2006 9:05 AM CDT Body Mass Index 19.4 10/18/2006 9:05 AM CDT Plan of Treatment Health Maintenance Due Date Last Done Comments Cervical Cancer Screening Pa p Smear (Age 30 to 64) Every 3 Years 1981 Annual Physical 1984 Hepatitis C 09/21/1999 Hepatitis B Vaccines (1 of 3 - 19+ 3-dose series) 2000 HPV Vaccines (1 - 3-dose SCD M series) 2008 Cervical Cancer Screening Roberto coley with HPV Testing (Age 30 to 64) Every 5 Years 09/21/2011 Cervical Cancer Screening with HPV 09/21/2011 Mammogram Screening 2021 COVID-19 Vaccine (1 - 2023-2 5 season) 2023 DTaP, Tdap and Td Vaccines ( 2 - Td or Tdap) 06/01/2034 06/01/2024 Meningococcal B Vaccine Aged Out No l [...] on patient's age to complete this topic Insurance [employer] Care Teams [employer] Relationship Specialty Start Date End Date Naz Cm PA [address] [place] [id number] PCP - General PHYSICIAN CARGO BROKER 06/15/24
[2024-11-03 18:23] VITALS: BP 104/62; PULSE 71; RESP 18; TEMP 36.2; O2SAT 99
== END 2024-11-03 18:31 | disposition home or self-care (01) ==
PROVIDERS: Emergency Provider Nurse Practitioner Family; PCP Physician Assistant Medical
DX: L08.9 Local infection of the skin and subcutaneous tissue, unspecified (principal); B95.8 Unspecified staphylococcus as the cause of diseases classified elsewhere
CPT/HCPCS: 99213; G0463